=== PATIENT | female | born 1960 | race Caucasian/White ===

== ENCOUNTER 2020-03-27 17:37 | Emergency (ER) | payer OTHER, SELFPAY ==
[2020-03-27 17:44] VITALS: BP 145/64; PULSE 69; RESP 16; TEMP 36.8; O2SAT 98
--- NOTE | 2020-03-27 18:04 | ED.UPPEXIN ---
HPI - Extremity Injury (Upper) General Chief Complaint: Extremity Injury, Upper Stated Complaint: right arm injury Time Seen by Provider: 03/27/20 18:00 Source: patient and RN notes reviewed History of Present Illness HPI narrative: Patient is a 59-year-old female who presents the urgent care with complaints of a right shoulder injury. Patient states that she fell with her right arm outward approximately a week and a half ago. Patient states that she followed up at [facility] emergency room directly after the fall in which this shoulder x-ray was negative at that time. Patient denies of any dislocation or known fracture. States that she called her PCP this morning and told her she was still having a lot of discomfort to the right shoulder and was told to follow-up at the urgent care. Patient states that it is difficult to raise the arm however pain is reduced with ibuprofen. Patient also has prescription tramadol if necessary. No other acute complaints. No acute distress noted. Patient read the plan of care. Related Data Home Medications Medication Instructions Recorded Confirmed atorvastatin 20 mg PO DAILY 03/27/20 03/27/20 insulin glargine [Lantus U-100 30 unit SUBCUT BID 03/27/20 03/27/20 Insulin] insulin lispro [Humalog U-100 10 unit SUBCUT TID 03/27/20 03/27/20 Insulin] lisinopril 10 mg PO DAILY 03/27/20 03/27/20 phentermine 37.5 mg PO DAILY 03/27/20 03/27/20 Allergies Allergy/AdvReac Type Severity Reaction Status Date / Time acetaminophen [From Percocet] Allergy Hallucinati Verified 03/27/20 17:56 ng oxycodone [From Percocet] Allergy Hallucinati Verified 03/27/20 17:56 ng sertraline [From Zoloft] Allergy Itching Verified 03/27/20 17:56 Review of Systems Review of Systems: Narrative: CONSTITUTIONAL: Denies fever, chills, or sweats. EYES: Denies visual changes, redness, or discharge. ENT: Denies rhinorrhea, congestion, sore throat, or otalgia. CARDIOVASCULAR: Denies chest pain, palpitations, or edema. RESPIRATORY: Denies cough or dyspnea. GASTROINTESTINAL: Denies abdominal pain, nausea, vomiting, or diarrhea. GENITOURINARY: Denies dysuria or hematuria. SKIN: Denies rash or itching. MUSCULOSKELETAL: Reports of right anterior and posterior shoulder pain with range of motion NEUROLOGIC: Denies headache, numbness, or weakness. All other systems reviewed are negative, except as documented in HPI. PMFSH Comments At the time of my signature, I reviewed and agree with the nursing past medical, surgical, social, and family history. There is no relevant family history pertinent to the patient complaint. Exam Narrative: Exam Narrative: GENERAL: This is a well-nourished, well-developed patient, in no apparent distress. HEAD: normocephalic, atraumatic. EYES: PERRL. Sclera clear/white. Vision is grossly intact. EARS: External ears normal NOSE: External nose normal with no obvious nasal discharge, nares without redness, no rhinorrhea. THROAT: Mucous membranes moist NECK: Neck supple SKIN: warm, intact with no suspicious lesions or rash, good texture and turgor. NEURO: awake, alert, and oriented to person, place and time. There were no obvious focal neurologic abnormalities. EXTREMITIES: Mild to moderate posterior right shoulder joint tenderness, moderate tenderness to the anterior shoulder joint spaces with range of motion of the right shoulder limited due to pain. Positive strong right radial pulse with capillary refill less than 2 seconds. Course Vital Signs Vital signs: Vital Signs Temperature 98.2 F 03/27/20 17:44 Pulse Rate 69 03/27/20 17:44 Respiratory Rate 16 03/27/20 17:44 Blood Pressure 145/64 H 03/27/20 17:44 Pulse Oximetry 98 03/27/20 17:44 Temperature 98.2 F 03/27/20 17:44 Pulse Rate 69 03/27/20 17:44 Respiratory Rate 16 03/27/20 17:44 Blood Pressure 145/64 H 03/27/20 17:44 Pulse Oximetry 98 03/27/20 17:44 Reviewed?patient is informed that they may
== END 2020-03-27 18:13 | disposition home or self-care (01) ==
PROVIDERS: Emergency Provider Nurse Practitioner Family; PCP Internal Medicine
DX: S43.401A Unspecified sprain of right shoulder joint, initial encounter (principal); W19.XXXA Unspecified fall, initial encounter; E78.00 Pure hypercholesterolemia, unspecified; I10 Essential (primary) hypertension; E11.9 Type 2 diabetes mellitus without complications; Z79.4 Long term (current) use of insulin
CPT/HCPCS: 99212; G0463

== ENCOUNTER 2021-11-19 12:08 | Emergency (ER) | payer OTHER, SELFPAY ==
--- NOTE | 2021-11-19 12:10 | ED.FEMALEGU ---
HPI - Female Genitourinary General Chief complaint: Urogenital-Female Stated complaint: poss uti dizziness and lower back pain Time Seen by Provider: 11/19/21 12:10 Source: patient, family and RN notes reviewed History of Present Illness HPI Narrative: Patient is a 61-year-old female who presents the urgent care with complaints of possible UTI due to intermittent dizziness and lower back pain. Patient states lower back pain started last night. Denies of any recent changes in urination and states that she always has urinary Juan Alberto . Patient denies of any dysuria, hematuria, nausea, vomiting, abdominal pain or fevers. Patient has not taken anything [id number] for her low back pain and denies of any recent injury or heavy strenuous activity. Patient states that the dizziness has been ongoing for approximately 2 months and her doctor was unable to see her today and wanted her to be evaluated at the urgent care. No other acute complaints. No acute distress noted. Patient aware of the plan of care. Some parts of this dictation were generated by voice recognition software and may contain typographical and/or grammatical inaccuracies. Related Data Home Medications Medication Instructions Recorded Confirmed atorvastatin 40 mg PO DAILY 11/19/21 11/19/21 insulin detemir U-100 [Levemir 26 unit SUBCUT BID 11/19/21 11/19/21 U-100 Insulin] insulin lispro [Humalog Pen] 1 sliding scale dose SUBCUT 11/19/21 11/19/21 USEASDIRECTD lisinopril 10 mg PO DAILY 11/19/21 11/19/21 omeprazole 40 mg PO DAILY 11/19/21 11/19/21 Allergies Allergy/AdvReac Type Severity Reaction Status Date / Time acetaminophen [From Percocet] Allergy Hallucinati Verified 11/19/21 12:15 ng oxycodone [From Percocet] Allergy Hallucinati Verified 11/19/21 12:15 ng sertraline [From Zoloft] Allergy Itching Verified 11/19/21 12:15 antidepressants AdvReac Unknown Uncoded 11/19/21 12:29 Review of Systems Review of Systems: CONSTITUTIONAL: Denies fever, chills, or sweats. EYES: Denies visual changes, redness, or discharge. ENT: Denies rhinorrhea, congestion, sore throat, or otalgia. CARDIOVASCULAR: Denies chest pain, palpitations, or edema. RESPIRATORY: Denies cough or dyspnea. GASTROINTESTINAL: Denies abdominal pain, nausea, vomiting, or diarrhea. GENITOURINARY: Denies dysuria or hematuria. SKIN: Denies rash or itching. MUSCULOSKELETAL: Reports of low back pain NEUROLOGIC: Denies headache, numbness, or weakness. Reports of intermittent dizziness All other systems reviewed are negative, except as documented in HPI. PMFSH Comments At the time of my signature, I reviewed and agree with the nursing past medical, surgical, social, and family history. There is no relevant family history pertinent to the patient complaint. Exam Narrative: GENERAL: This is a well-nourished, well-developed patient, in no apparent distress. HEAD: normocephalic, atraumatic. EYES: PERRL. Sclera clear/white. Vision is grossly intact. EARS: External ears normal, auditory canals clear and without drainage, TMs normal without perforation. Hearing grossly intact. NOSE: External nose normal with no obvious nasal discharge, nares without redness, no rhinorrhea. THROAT: Mucous membranes moist, posterior pharynx clear. NECK: Neck supple CARDIOVASCULAR: Regular rate and rhythm without murmurs, gallops, or rubs. RESPIRATORY: Clear to auscultation. Breath sounds equal bilaterally. No wheezes, rales, or rhonchi. GASTROINTESTINAL: Abdomen soft, non-tender, nondistended. Bowel sounds are active. SKIN: warm, intact with no suspicious lesions or rash, good texture and turgor. NEURO: awake, alert, and oriented to person, place and time. There were no obvious focal neurologic abnormalities. EXTREMITIES: No clubbing, cyanosis, or edema. BACK: Negative bilateral CVA tenderness Course Course Level of Care: Express Care Visit Vital Signs Vital signs: Vital Signs Temperature 97.9 F 04
[2021-11-19 12:18] VITALS: BP 131/61; PULSE 63; RESP 16; TEMP 36.6; O2SAT 98
[2021-11-19 12:35] VITALS: BP 131/61; PULSE 63; RESP 16; TEMP 36.6; O2SAT 98
--- NOTE | 2021-11-19 12:38 | PC.NURSE ---
NO UC ORDERED PER PROVIDER
== END 2021-11-19 12:40 | disposition home or self-care (01) ==
PROVIDERS: Emergency Provider Nurse Practitioner Family; PCP Internal Medicine
DX: R42 Dizziness and giddiness (principal); E78.00 Pure hypercholesterolemia, unspecified; I10 Essential (primary) hypertension; E11.9 Type 2 diabetes mellitus without complications; Z79.4 Long term (current) use of insulin
CPT/HCPCS: 81003; 99212; G0463

== ENCOUNTER 2025-04-04 16:27 | Emergency (ER) | payer BC, SELFPAY ==
--- OUTSIDE RECORDS SUMMARY | 2025-04-04 16:29 | XMS_ITS | Encounter Summary ---
Author Organization [facility] Address [address] [place] [address] Phone Care Team Providers Care Cnc Applications Engineer Name Role Phone Robert Yepez Samantha WEISS Unavailable [phone] Shady Wang MD Primary Care Provider [phone] John Burns MD Unavailable [phone] Svetlana Roe MD Unavailable Reena Song APRN, CNP Unavailable [phone] Zan Wiley MD Primary Care Provider [phone] Jerrell Rosenthal MD Unavailable [phone] Reason for Visit * Reason Comments Medication Refill Encounter Details Date Type Department Care Team (Late st Contact Info) Description 12/10/2023 Refill [facility] - Endocrinology - [place] [address] [place] [address] Svetlana Roe MD #[address] [address] Medication Refill Social History Tobacco Use Types Packs/Day Years Used Date Smoking Tobacco: Never Smokeless Tobacco: Never Alcohol Use Standard Drinks/Week Comments Yes 0 (1 standard drink = 0.6 oz pure alcohol) Occasionally has a glas of wine, maybe one glass of wine/month PHQ-2 Answer Date Recorded Total Score - Questions 1-9 11 0 08/2020 Sexually Active Control Partners Comments Yes Female Comments No Sex and Gender Information Value Date Recorded Sex Assigned at Not on file Legal Sex Female 9:28 PM CDT Gender Identity Not on file Sexual Orientation Not on file documented as of this encounter Miscellaneous Notes * Telephone Encounter - Marietta Camacho RN - 12/11/2023 8:27 AM CDT Medication(s) refilled and signed per [facility] Chronic Medication Refill Standing Order for Pediatric and Adult Patients. documented in this encounter Plan of Treatment Upcoming Encounters Date Type Department Care Team (Latest Contact Info) Description 04/09/2025 8:45 AM CDT Outpatient Clinic [facility] [address] [place] [phone] Chetan Timmons, LICENSED MASSAGE PRACTITIONER [address] [place] [address] Discharge Disposition: Discharged to home or Selfcare 04/14/2025 9:45 AM CDT Office Visit [facility] - Endocr[facility]ology - [place] [address] [place] [phone] Svetlana Roe MD #[address] [address] 04/23/2025 5:30 PM CDT [facility] [address] [place] [phone] Zan Wiley MD [address] [place] [address] Discharge Disposition: Discharged to home or Selfcare 04/24/2025 10:00 AM CDT Outpatient Clinic Visit [facility] [address] [place] [address] Chetan Timmons, LICENSED MASSAGE PRACTITIONER [address] [place] [address] Discharge Disposition: Discharged to home or Selfcare 08/18/2025 9:00 AM SUTURE POLISHER Office Visit [facility] Pulmonology & Sleep Medicine [facility] [address] [place] [address] Reena Song APRN, LIVESTOCK DEALER #[address] [address] 09/08/2025 9:40 AM SUTURE POLISHER Office Visit [facility] - Primary Care - [place] [address] [place] [phone] Zan Wiley MD [address] [place] [address] documented as of this encounter Goals Goal Patient Goal Type Associated Problems Recent Progress Patient-Stated? Author Healing Behavioral Health On track(2024 10:13 AM CDT) Yes Millie Grace LCSW Note: I want to be able to heal from the feeling of being double crossed by family and others. Goal Reviewed with: patient today Readiness to change: Ready to change Department associated with goal: [facility] Steps to achieve goal: 1. will learn to identify unhealthy and healthy characteristics/patterns/behaviors of relationships. 2. will verbalize increased confidence in setting healthy boundaries with others. 3. will report increased engagement in self-care, both physical and emotional. 4. Will participate in individual sessions at least 2x/mo Boundaries Behavioral Health On track(2024 10:13 AM CDT) No Varble, Millie A, LICENSED MASSAGE PRACTITIONER Note: Desi will learn more effective ways to set boundaries Goal Reviewed with: patient today Readiness to change: Ready to change Department associated with goal: [facility] Steps to achieve goal: will identify at least two warning signs self care is being neglected. will identify at least two boundaries that may help to improve opportunities for self-care. will identify at least two ways/skills/habits of self-care believed to have a positive outcome on overall wellbeing. will implement at least two changes (boundaries and/or skills/habits of self- care). Behavioral Health Behavioral Health On track(2024 10:13 AM CDT) Yes Chetan Timmons, LICENSED MASSAGE PRACTITIONER Note: I need to be able to cope better with my spouse's decline from dementia, plus bipolar disorder, and advance planning for the future, including monetary. documented as of this encounter Visit Diagnoses Not on filedocumented in this encounter Additional Health Concerns Assessment Noted Time PHQ-9 Depression Total Score: 11 021 10:00 AM CDT documented as of this encounter Care Teams Cnc Applications Engineer Relationship Specialty Start Date End Date Shady Wang MD [address] [place] [address] PCP - General Internal Medicine 06/15/17 10/16/24 Zan Wiley MD #[address] [address] PCP - General Internal Medicine 10/17/24 Robert Yepez DPM Podiatry 11/23/15 John Burns MD [address] [place] [address] Consulting Physician Orthopaedic Sports Medicine 08/31/20 Svetlana Roe MD #2 [facility] [address] [place] [address] Consulting Physician Endocrinology 05/12/22 Reena Song APRN, SANDRA #2 [facility] [address] [place] [address] Nurse Practitioner Advanced Practice Nurse 05/09/23 Jerrell Rosenthal MD #2 [facility] [address] [place] [address] Consulting Physician General Surgery 11/13/24 documented as of this encounter
--- OUTSIDE RECORDS SUMMARY | 2025-04-04 16:29 | XMS_ITS | Encounter Summary ---
Author Organization [facility] Address [address] [place] [address] Phone Care Team Providers Care Food Technologist Name Role Phone Robert Yepez Samantha WEISS Unavailable [phone] Shady Wang MD Primary Care Provider John Burns MD Unavailable Svetlana Roe MD Unavailable Reena Song APRN, CNP Unavailable [phone] Zan Wiley MD Primary Care Provider [phone] Jerrell Rosenthal MD Unavailable [phone] Reason for Visit * Reason Comments Medication Refill Encounter Details Date Type Department Care Team (Late st Contact Info) Description 07/31/2023 Refill [facility] - [facility] - [place] [address] [place] [address] Svetlana Roe MD #[address] [address] Medication Refill Social History Tobacco [...] Miscellaneous Notes * Telephone Encounter - Marietta Camacho, RN - 08/01/2023 9:28 AM FLEET ASSISTANT Requested Prescriptions Pending Prescriptions Disp Refills ??? Continuous Blood Gluc Geophysical Laboratory Director (Dexcom G7 Geophysical Laboratory Director) Device [Pharmacy Med Name: DEXCOM G7 HOG COUNTER MIS] 1 Each 0 Sig: CHECK BLOOD GLUCOSE BEFORE EACH MEAL AND AT BEDTIME Next appt: 08/23/2023 T ASSISTANT documented in this encounter Plan of Treatment Upcoming Encounters Date Type Department Care Team (Latest Contact Info) Description 04/09/2025 8:45 AM CDT [facility] [address] [place] [phone] Chetan Timmons LCSW [address] [place] [address] Discharge Disposition: Discharged to home or Selfcare 04/14/2025 9:45 AM CDT Office Visit [facility] - Endocrinology [facility] #2 [place] [phone] Svetlana Roe MD #[address] [phone] 04/23/2025 5:30 PM CDT Appointment [facility] [address] [place] [phone] Zan Wiley MD [address] [place] [address] Discharge Disposition: Discharged to home or Selfcare 04/24/2025 10:00 AM CDT Outpatient Clinic Visit [facility] [address] [place] [address] Chetan Timmons, MANAGER WAREHOUSE [address] [place] [address] Discharge Disposition: Discharged to home or Selfcare 08/18/2025 9:00 AM FLEET ASSISTANT Office Visit [facility] Pulmonology & Sleep Medicine - [place] #[address] [place] [phone] Reena Song APRN, ENGINE DYNAMOMETER TESTER #[address] [address] 09/08/2025 9:40 AM FLEET ASSISTANT Office Visit [facility] - Primary Care - [place] [address] [place] [phone] Zan Wiley MD [address] [place] [address] documented as of this encounter Goals Goal Patient Goal Type Associated Problems Recent Progress Patient-Stated? Author Healing Behavioral Health On track(2024 10:13 AM CDT) Yes Millie Grace, MANAGER WAREHOUSE Note: I want to be able to heal from the feeling of being double crossed by family and others. Goal Reviewed with: patient today Readiness to change: Ready to change Department associated with goal: [facility] Steps to achieve goal: 1. will learn to identify unhealthy and healthy characteristics/patterns/behaviors of relationships. 2. will verbalize increased confidence in setting healthy boundaries with others. 3. will report increased engagement in self-care, both physical and emotional. 4. Will participate in individual sessions at least 2x/mo Boundaries Behavioral Health On track(2024 10:13 AM CDT) No Millie Grace LCSW Note: Desi will learn more effective ways to set boundaries Goal Reviewed with: patient today Readiness to change: Ready to change Department associated with goal: [facility] Steps to achieve goal: [...] On track(2024 10:13 AM CDT) Yes Chetan Timmons LCSW Note: I need to be able to cope better with my spouse's decline from dementia, plus bipolar disorder, and advance planning for the future, including monetary. documented as of this encounter Visit Diagnoses Not on filedocumented in this encounter Additional Health Concerns Assessment Noted Time PHQ-9 Depression Total Score: 11 021 10:00 AM CDT documented as of this encounter Care Teams Food Technologist Relationship Specialty Start Date End Date Shady Wang MD [address] [place] [address] PCP - General Internal Medicine 06/15/17 10/16/24 Zan Wiley MD #[address] [address] PCP - General Internal Medicine 10/17/24 Robert Yepez DPM Podiatry 11/23/15 John Burns MD [address] [place] [address] Consulting Physician Orthopaedic Sports Medicine 08/31/20 Svetlana Roe MD #[address] [address] Consulting Physician Endocrinology 05/12/22 Reena Song APRN, ENGINE DYNAMOMETER TESTER #[address] [address] Nurse Practitioner Advanced Practice Nurse 05/09/23 Jerrell Rosenthal MD #[address] [address] Consulting Physician General Surgery 11/13/24 documented as of this encounter
--- OUTSIDE RECORDS SUMMARY | 2025-04-04 16:29 | XMS_ITS | Clinical Summary ---
Author Organization [facility] Address [address] [place] [address] Phone Care Team Providers Care Drywaller Name Role Phone MarleniRobert DPM Unavailable [phone] John Burns MD Unavailable [phone] Svetlana Roe MD Unavailable Reena Song APRN, PARTS COUNTER SALESPERSON Unavailable Zan Wiley MD Primary Care Provider [phone] Jerrell Rosenthal MD Unavailable Allergies Active Allergy Reactions Criticality Noted Date Comments Charentais Melon (Macedonian Melon) Itching,Swelling Medium 11/04/2017 Tongue and lips itch with melon and tongue swells. Dulaglutide Itching 09/05/2019 Epinephrine Other (see Comments) 01/17/2025 Increased heart rate with difficulty breathing Meperidine Other (see Comments) 10/18/2021 Reaction: causes hallucinations, Metronidazole Itching 06/05/2023 Oxycodone-Acetaminophen Itching,Hallucin ati ons High 07/20/2015 Sertraline Hcl Itching Medium 07/20/2015 Medications Insulin Syringe-Needle U-100 (INSULIN SYRINGE .5CC/31GX5/16) 31G X 5/16 0.5 ML Misc Twice a day 200 Each 3 018 Active Lancets Misc Test four times daily. 400 Lancet 3 020 Active Glucose Blood Strip Test four times daily 400 Strip 3 020 Active aspirin 81 MG Chewable Tablet Take 1 Tablet by mouth daily. 100 Tablet 021 Active loratadine (CLARITIN) 10 MG Tablet daily Active albuterol 108 (90 Base) MCG/ACT Aerosol Solution take 1-2 Puffs by inhalation every 6 hours as needed for Wheezing. Active VITAMIN D PO Take by mouth. Ac tive Insulin Pen Needle (Pen [place]) 32G X 5 MM Misc Three times a day 300 Each 3 025 Active fluticasone-leslie meterol (Wixela Inhub) 250-50 MCG/ACT AEROSOL POWDER, BREATH ACTIVATEDIndica tions:Mild intermittent asthma without complication take 1 Puff by inhalation 2 times daily. 1 Each 5 025 Active Continuous Glucose Sensor (Dexcom G7 Sensor) Misc CHANGE SENSOR EVERY 10 DAYS 9 Each 025 Active Tresiba FlexTouch 100 UNIT/ML Solution Pen-injector 40 Units by Subcutaneous route 2 times daily. 75 mL 1 025 Active NovoLOG FlexPen 100 UNIT/ML Solution Pen-injector INJECT 44-60-60 UNITS SUBCUTANEOUSLY BEFORE MEAL(S) ISF OF 1:10 IF > 140MG/DL. MAX OF 180 UNITS PER DAY 180 mL 1 025 Active lisinopril (PRINIVIL, ZESTRIL) 5 MG Tablet Take 1 Tablet by mouth daily. 90 Tablet 025 Active atorvastatin (LIPITOR) 40 MG Tablet Take 1 Tablet by mouth daily. 90 Tablet 025 Active Continuous Glucose Script Coordinator (Dexcom G7 Script Coordinator) Device USE TO CHECK BLOOD GLUCOSE BEFORE EACH MEAL AND AT BEDTIME 1 Each 025 Active hydrOXYzine (ATARAX) 25 MG Tablet Take 1 Tablet by mouth every 8 hours as needed for Anxiety. 30 Tablet 025 Active zolpidem (AMBIEN) 5 MG TabletIndicatio ns:Psychophysio logical insomnia Take 1 Tablet by mouth nightly as needed for Sleep. 10 Tablet 025 Active Continuous Glucose Script Coordinator (Dexcom G7 Script Coordinator) Device Check blood glucose before each meal and at bedtime 1 Each 025 2024 Discontinued Active Problems Problem Noted Date Diagnosed Date Glaucoma of both eyes 10/17/2024 Mild intermittent asthma without complication Hyperparathyroidism 10/17/2024 Nonalcoholic fatty liver disease 10/17/2024 JOEY (obstructive sleep apnea) 08/10/2023 Overview (10/17/2024): On CPAP- FU by manager respiratory care. Anxiety with depression 01/29/2021 Chest pain, rule out acute myocardial infarction 09/28/2020 S/P right rotator cuff repair 09/28/2020 Class 2 severe obesity due t o excess calories with serious comorbidity and body mass index (BMI) of 37.0 to 37.9 in adult 12/17/2018 Type 2 diabetes mellitus wit hout complication, with long-term current use of insulin 10/23/2015 Essential hypertension 10/23/2015 Mixed hyperlipidemia 10/23/2015 Depression 07/20/2015 Anger 07/20/2015 Anxiety 07/20/2015 Resolved Problems Problem Noted Date Diagnosed Date Resolved Date Snoring 05/09/2023 08/10/2023 Excessive daytime sleepiness 05/09/2023 08/13/2024 Traumatic complete tear of right rotator cuff 09/29/1909/28/2020 Arthritis of right acromioclavicular joint 09/28/2020 09/28/2020 Biceps tendinitis on right 09/28/2020 0 09/28/2020 Hypoglycemia 12/17/2018 10/17/2024 Asthma 06/15/2017 10/17/2024 Numbness of face 02/11/2016 10/17/2024 Encounters Date Type Department Care Team Description 04/04/2025 Nurse Triage [facility] [address] [place] [address] Zan Wiley MD Advice Only; Medication Management 03/20/2025 Refill [facility] - [place] [address] [place] [address] Svetlana Roe MD Medication Refill 03/07/2025 8:40 AM CDT Office Visit [facility] Primary Care - [place] [address] [place] [address] Zan Wiley MD Chronic allergic rhinitis (Primary Dx); Barnes of foot; Right lower lobe pulmonary nodule; Morbid obesity (HCC); Essential hypertension; Mixed hyperlipidemia Discharge Disposition: Discharged to home or Selfcare 03/07/2025 Travel 03/03/2025 10:00 AM CDT Outpatient Clinic Visit [facility] [address] [place] [phone] Chetan Timmons, [facility] Anxiety with depression (Primary Dx) Discharge Disposition: Discharged to home or Selfcare 03/03/2025 Travel 02/24/2025 Refill [facility] Internal Medicine - [place] [address] [place] [address] Zan Wiley MD Medication Refill 02/22/2025 MyChart RX Renewal [facility] Endocrinology [facility] [address] [place] [phone] Svetlana Roe MD Medication Renewal Reviewed 02/22/2025 MyChart RX Renewal [facility] Endocrinology [facility] [address] [place] [phone] Svetlana Roe MD Medication Renewal Reviewed 02/22/2025 MyChart RX Renewal [facility] Endocrinology - [place] [address] [place] [phone] Svetlana Roe MD Medication Renewal Reviewed 02/22/2025 MyChart RX Renewal [facility] Endocrinology [facility] [address] [place] [phone] Svetlana Roe MD Medication Renewal Reviewed 02/10/2025 9:30 AM CDT Office Visit [facility] Pulmonology & Sleep Medicine [facility] [address] [place] [phone] Reena Song APRN, CNP JOEY (obstructive sleep apnea) (Primary Dx); Mild intermittent asthma without complication; Class 2 severe obesity due to excess calories with serious comorbidity and body mass index (BMI) of 37.0 to 37.9 in adult (HCC) Discharge Disposition: Discharged to home or Selfcare 02/10/2025 Travel 02/08/2025 MyChart RX Renewal [facility] Endocrinology - [place] [address] [place] [address] Svetlana Roe MD Medication Renewal Reviewed 02/08/2025 MyChart RX Renewal [facility] Pulmonology & Sleep Medicine [facility] [address] [place] [address] Reena Song APRN, CNP Medication Renewal Reviewed 01/28/2025 11:15 AM CDT Outpatient Clinic Visit [facility] [address] [place] [address] Chetan Timmons, FRAME NAILER Anxiety with depression (Primary Dx) Discharge Disposition: Discharged to home or Selfcare 01/28/2025 Travel 01/21/2025 Results Follow-Up [facility] [address] [place] [address] Svetlana Roe MD Pathology Cytology Non-VERIFIER OPERATOR 01/17/2025 10:00 AM CDT - 01/17/2025 10:30 AM CDT Surgery [facility] Periop [address] [place] [address] Provider, Not On File PRE / POST CARE FOR PROCEDURAL AREA-THYROID BIOPSY RIGHT AND ISTHMUS 01/17/2025 9:04 AM CDT - 01/17/2025 11:59 PM CDT Hospital Encounter [facility] Ultrasound [address] [place] [address] Svetlana Roe MD Provider, Anesthesiologist Discharge Disposition: Discharged to home or Selfcare 01/17/2025 8:48 AM CDT - 01/17/2025 11:05 AM CDT Hospital [facility] Preop/Pacu II [address] [place] [phone] Provider, Not On File Svetlana Roe MD Discharge Disposition: Discharged to home or Selfcare 01/17/2025 Travel 01/07/2025 10:00 AM CDT [facility] [address] [place] [address] Svetlana Roe MD Type 2 diabetes mellitus without complication, with long-term current use of insulin (Primary Dx); Nodular goiter; Class 2 severe obesity due to excess calories with serious comorbidity and body mass index (BMI) of 38.0 to 38.9 in adult (HCC); Insulin dose changed (HCC); Hyperparathyroidism (HCC) Discharge Disposition: Discharged to home or Selfcare 01/07/2025 Travel from Last 3 Months Immunizations Immunization Administration Dates Next Due Influenza Vaccine greater than 3 yrs 03/31/2016 Influenza Vaccine, MDCK,quad rivalent, pres free 04/22/2022 Influenza Vaccine, Quadrivalent, PF 04/10/2017,0 04/10/2015 Influenza Vaccine,unspecifie d Formulation 05/04/2023 Influenza, Injectable, Quadrivalent 05/01,04/24/2020,05/22/2019,05/15 Influenza, Seasonal, Injecta ble, Undefined 03/31/2016 Influenza, high-dose, trivalent, PF 06/03/2014 Influenza,Split Virus,Trivalent,Injectable,PF 03/31/2011 Pneumococcal Vaccine - 13 Valent 04/10/2017 Pneumococcal Vaccine Adult - 23 Valent 0,10/22/2009 Pneumococcal conjugate PCV20 , polysaccharide [id number] conjugate, adjuvant, PF 10/17/2024 RSV, Bivalent, Protein Subun it Rsvpref, Diluent Reconstit (Abrysvo) 06/14/2023 TDAP Vaccine 03/22/2022,12/31/2017,10/22/2009 Family History Medical History Relation Name Comments Diabetes Brother Asthma Father Cancer Father Melanoma, lung, and bone Alcohol Abuse Maternal Grandfather Schizophrenia Maternal Grandmother Alcohol Abuse Maternal Uncle Bipolar Disorder Mother Cancer Mother Stomach Relation Name Status Comments Brother Alive Father (Age 79) Maternal Grandfather Maternal Grandmother Maternal Uncle Mother (Age 62) Social History Tobacco Use Types Packs/Day Years Used Date Smoking Tobacco: Never Passive Smoke Exposure: Never Smokeless Tobacco: Never Tobacco Cessation:Counseling Given: No Alcohol Use Standard Drinks/Week Comments Yes 0 (1 standard drink = 0.6 oz pure alcohol) Occasionally has a glas of wine, maybe one glass of wine/month [employer] Answer Date Recorded In the past 12 months has [employer], oil, or water [employer] threatened to shut off services in your home? Patient declined 10/17/2024 Social Connection and Isolation Panel Answer Date Recorded In a typical week, how many times do you talk on the phone with family, friends, or neighbors? More than three times a week 10/17/2024 How often do you get togethe r with friends or relatives? Twice a week 10/17/2024 How often do you attend [facility] ch or baptism services? More than 4 times per year 10/17/2024 Do you belong to any clubs o r organizations such as taoism groups, unions, fraternal or athletic groups, or school groups? Yes 10/17/2024 How often do you attend meet ings of the clubs or organizations you belong to? More than 4 times per year 10/17/2024 Are you , , di vorced, , never , or living with a partner? 10/17/2024 AUDIT-C Answer Date Recorded Q1: How often do you have a drink containing alc ohol? Monthly or less 10/17/2024 Average Number of Drinks Not on file 025 Frequency of Binge Drinking Not on file 09/29 Overall Financial Resource Strain (CARDIA) Answe r Date Recorded How hard is it for you to pa y for the very basics like food, housing, medical care, and heating? Patient declined 10/17/2024 PHQ-2 Answer Date Recorded Total Score - Questions 1-9 0 09/29 [employer] - Occupational Stress Questionnaire Answer Date Recorded Do you feel stress - tense, restless, nervous, or anxious, or unable to sleep at night because your mind is troubled all the time - these days? Very much 10/17/2024 Exercise Vital Sign Answer Date Recorde d On average, how many days pe r week do you engage in moderate to strenuous exercise (like a brisk walk)? 1 day 10/17/2024 On average, how many minutes do you engage in exercise at this level? 10 min 10/17/2024 Hunger Vital Sign Answer Date Recorded Within the past 12 months, y ou worried that your food would run out before you got the money to buy more. Patient declined Ran Out of Food in the Last Year Not on file 10/17/2024 PRAPARE - Transportation Answer Date Re corded In the past 12 months, has l ack of transportation kept you from medical appointments or from getting medications? Patient declined 10/17/2024 Lack of Transportation (Non-Medical) Not on file 10/17/2024 Housing Stability Vital Sign Answer Cricket e Recorded In the last 12 months, was t here a time when you were not able to pay the mortgage or rent on time? Patient declined 10/18/19 Number of Times Moved in the Last Year Not on fi le 10/17/2024 Homeless in the Last Year Not on file 2024 Sexually Active Control Partners Comments Yes Female Comments No Sex and Gender Information Value Date Recorded Sex Assigned at Not on file Legal Sex Female 9:28 PM CDT Gender Identity Not on file Sexual Orientation Not on file Last Filed Vital Signs Vital Sign Reading Time Taken Comments Blood Pressure 112/70 03/07/2025 8:07 AM CDT Pulse 64 03/07/2025 8:07 AM CDT Temperature 36.3 C (97.4 F) 03/07/2025 8:07 AM CDT Respiratory Rate 12 03/07/2025 8:07 AM CDT Oxygen Saturation 97% 03/07/2025 8:07 AM CDT Inhaled Oxygen Concentration - - Weight 96.2 kg (212 lb) 03/07/2025 8:07 AM CDT Height 157.5 cm (5' 2) 02/10/2025 9:30 AM CDT Body Mass Index 38.78 02/10/2025 9:30 AM CDT Plan of Treatment Upcoming Encounters Date Type Department Care Team (Latest Contact Info) Description 04/09/2025 8:45 AM CDT Outpatient Clinic Visit [facility] [address] [place] [phone] Chetan Timmons, FRAME NAILER [address] [place] [address] Discharge Disposition: Discharged to home or Selfcare 04/14/2025 9:45 AM CDT Office Visit [facility] - Endocrinology [facility] [address] [place] [phone] Svetlana Roe MD [address] [address] 04/23/2025 5:30 PM CDT Appointment [facility] [address] [place] [phone] Zan Wiley MD [address] [place] [address] Discharge Disposition: Discharged to home or Selfcare 04/24/2025 10:00 AM CDT Outpatient Clinic Visit [facility] [address] [place] [address] Chetan Timmons, FR[employer] NAIL[employer] [address] [place] [address] Discharge Disposition: Discharged to home or Selfcare 08/18/2025 9:00 AM FOUNDER CEO & PRESIDENT Office Visit [facility] - Pulmonology & Sleep Medicine [facility] [address] [place] [phone] Reena Song APRN, [place] [address] [facility] [address] [place] [address] 09/08/2025 9:40 AM FOUNDER CEO & PRESIDENT Office Visit [facility] Group - Primary Care - [place] [address] [place] [phone] Zan Wiley MD [address] [place] [address] Health Maintenance Due Date Last Done Comments Hepatitis C Virus (HCV) Screening 1961 Cologuard 2006 Immunochemical Fecal Occult Blood 2006 Zoster Immunization (1 of 2) 2011 Influenza Immunization (#1) 03/31/202503/01, 05/04/2023, 04/22/2022, Additional history exists Diabetes: Hemoglobin A1c 07/09/2025 025, 09/30/2024, 07/01/2024, Additional history exists Diabetes: Nephropathy Screening 09/24/2025 09/24/2024, 06/10/2024, 09/11/2023, Additional history exists Mammogram 10/03/2025 10/03/2024, 03/0 12/2024, 06/19/2023, Additional history exists Diabetes: Eye Exam 10/17/2025 10/17/2024, 0 09/05/2023, 08/03/2022, Additional history exists Diabetes: Foot Exam 10/17/2025 10/17/2024, 3 Colonoscopy 08/19/2031 08/19/2021 Colorectal Cancer Screening 08/19/2031 Td Immunization Every 10 Years (Adults With 1 Tdap) 03/22/2032 03/22/2022, 12/31/2017, 10/22/2009 DTaP/Tdap/Td Immunization Discontinued 2021, 12/31/2017, 10/22/2009 Respiratory Syncytial Virus (RSV) Immunization (Adult) Completed 06/14/2023 SARS-COV-2 Immunization Completed 03/28/20 24, 06/14/2023, 04/22/2022, Additional history exists Pneumococcal Immunization (50+ years) Completed 10/17/2024, 04/10/2017, 04/30/2010, Additional history exists Pneumococcal Immunization Combined Discontinued 10/17/2024, 04/10/2017, 04/30/2010, Additional history exists Hepatitis B Immunization Aged Out No longer eligible based on patient's age to complete this topic Human Papillomavirus (HPV) Immunization Aged Out No longer eligible based on patient's age to complete this topic Meningococcal Immunization (ACWY) Aged Out No longer eligible based on patient's age to complete this topic Rotavirus Immunization Aged Out No lo nger eligible based on patient's age to complete this topic Goals Goal Patient Goal Type Associated Problems Recent Progress Patient-Stated? Author [facility] On track(2024 10:13 AM CDT) Yes Millie Grace LCSW Note: I want to be able to heal from the feeling of being double crossed by family and others. Goal Reviewed with: patient today Readiness to change: Ready to change Department associated with goal: [facility] Steps to achieve goal: 1. will learn to identify unhealthy and healthy characteristics/patterns/behaviors of relationships. 2. will verbalize increased confidence in setting healthy boundaries with others. 3. will report increased engagement in self-care, both physical and emotional. 4. Will participate in individual sessions at least 2x/mo [facility] On track(2024 10:13 AM CDT) No Millie Grace LCSW Note: Bacilio will learn more effective ways to set boundaries Goal Reviewed with: patient today Readiness to change: Ready to change Department associated with goal: [facility] Steps to achieve goal: [...] advance planning for the future, including monetary. Medical Devices Implanted Type Area Sewer Digger Device Identifier Shelf Expiration Date Model / Serial / Lot [place] Sut 5.5mm Swivelock C Closed Eyelet Vent Biocomposite Peek 19.1mm Strl - [id number] Implanted:Qty: 1 on 09/28/[facility] IMPL[facility] Right: Shoulder [employer] 07/30/2024 AR-2323BC C / AR-2323BC C / [id number] [place] Sut Swivelk 4.12z14vl Absb Sft Tis Biocmps - [id number] Implanted:Qty: 1 on 09/28/2020 by [facility] IMPLANT Right: Shoulder [employer] 04/29/2024 AR-2324BC C-2 / AR-2324BC C-2 / [id number] [place] Sut Swivelk 4.33m02rg Absb Sft Tis Biocmps - [id number] Implanted:Qty: 1 on 09/28/2020 by John Burns MD at [facility] IMPLANT Right: Shoulder [employer] 04/29/2024 AR-2324BC C-2 / AR-2324BC C-2 / [id number] Explanted Type Area Sewer Digger Device Identifier Shelf Expiration Date Model / Serial / Lot 2.6 Fiber Siddharth Suture [place], Triple Loaded With 1.3mm Suture Tape Explanted:Qty: 1 on 09/28/[facility] at [facility] Right: Shoulder [employer] 03/30/2025 AR-3633 / AR-3633 / [id number] Procedures Procedure Name Priority Date/Time Associated Diagnosis Comments US GUIDANCE AND THYROID FINE NEEDLE ASPIRATION Routine 01/17/2025 11:01 AM CDT Nodular goiter US GUIDANCE AND THYROID FINE NEEDLE ASPIRATION Routine 01/17/2025 11:00 AM CDT Nodular goiter PATHOLOGY CYTOLOGY NON-VERIFIER OPERATOR Routine 01/17/2025 10:40 AM CDT Nodular goiter PRE / POST CARE FOR PROCEDURAL AREA 01/17/2025 10:00 AM CDT THYROID NODULE POCT GLYCOSYLATED HEMOGLOBIN Routine 01/07/2025 9:50 AM CDT Type 2 diabetes mellitus without complication, with long-term current use of insulin MAMMOGRAM BILATERAL GENERIC 10/03/2024 12:00 AM FOUNDER CEO & PRESIDENT CMP (COMPREHENSIVE METABOLIC PANEL) 09/24/2024 12:00 AM FOUNDER CEO & PRESIDENT HM DILATED EYE EXAM 08/03/2022 1 2:00 AM FOUNDER CEO & PRESIDENT from Last 3 Months or Most Recently Relevant to Health Maintenance Results * US GUIDANCE AND THYROID FINE NEEDLE ASPIRATION (01/17/2025 11:01 AM CDT) Only the most recent of2 resultswithin the time period is included. Anatomical Region Laterality Modality BODY N/A Ultrasound 01/17/2025 12:1 5 PM CDT Impressions 01/17/2025 12:18 PM CDT IMPRESSION: Unsuccessful attempts at ultrasound-guided fine-needle aspiration of the isthmus nodule due to extensive peripheral calcification. Narrative 01/17/2025 12:18 PM CDT EXAM DESCRIPTION: US GUIDANCE AND THYROID FINE NEEDLE ASPIRATION HISTORY: nodular goiter ultrasound guided fine-needle aspiration of this nodule was requested. COMPARISON: Thyroid ultrasound 11/19/2024 TECHNIQUE/FINDINGS: Comparison was made to thyroid ultrasound dated 11/19/2024. Immediately prior to the procedure, the healthcare team performed the safety pause and verbally confirmed that the patient, the planned procedure, the site and side were accurate. Preprocedure images redemonstrate the 2.5 x 2.1 x 1.7 cm peripherally calcified nodule in the isthmus. The skin was prepped using standard aseptic technique. Local anesthesia was achieved with injection of 2 mL of 1% lidocaine in the skin and superficial tissues. Attempts at fine needle aspiration were made of the thyroid nodule under sonographic guidance. Due to extensive calcification, the needle was not able to penetrate the nodule. Needle placement was documented with sonographic images. No complications were noted. Hemostasis was achieved. A sterile bandage was applied to the site. The patient tolerated the procedure well without complication. Post procedure pain control was adequate. Post procedure education was completed including pain management instructions. Estimated blood loss: <5 mL THIS IS AN ELECTRONICALLY VERIFIED FINAL REPORT 01/17/2025 12:15 PM - Electronically signed by Rafat Salinas M.D. AM: AM Report ID: [id number] Reading Location: [id number] Procedure Note Rafat Salinas MD - 01/17/2025 EXAM DESCRIPTION: US GUIDANCE AND THYROID FINE NEEDLE ASPIRATION HISTORY: nodular goiter ultrasound guided fine-needle aspiration of this nodule was requested. COMPARISON: Thyroid ultrasound 11/19/2024 TECHNIQUE/FINDINGS: Comparison was made to thyroid ultrasound dated 11/19/2024. Immediately prior to the procedure, the healthcare team performed the safety pause and verbally confirmed that the patient, the planned procedure, the site and side were accurate. Preprocedure images redemonstrate the 2.5 x 2.1 x 1.7 cm peripherally calcified nodule in the isthmus. The skin was prepped using standard aseptic technique. Local anesthesia was achieved with injection of 2 mL of 1% lidocaine in the skin and superficial tissues. Attempts at fine needle aspiration were made of the thyroid nodule under sonographic guidance. Due to extensive calcification, the needle was not able to penetrate the nodule. Needle placement was documented with sonographic images. No complications were noted. Hemostasis was achieved. A sterile bandage was applied to the site. The patient tolerated the procedure well without complication. Post procedure pain control was adequate. Post procedure education was completed including pain management instructions. Estimated blood loss: <5 mL THIS IS AN ELECTRONICALLY VERIFIED FINAL REPORT 01/17/2025 12:15 PM - Electronically signed by Rafat Salinas M.D. AM: AM Report ID: [id number] Reading Location: [id number] IMPRESSION: Unsuccessful attempts at ultrasound-guided fine-needle aspiration of the isthmus nodule due to extensive peripheral calcification. us Svetlana Roe MD IMG US ORDERABLES Final Result * Pathology Cytology Non-VERIFIER OPERATOR (01/17/2025 10:40 AM CDT) Case Report Medical Cytology Report Case: [id number] Authorizing Provider: Svetlana Roe MD Collected: 01/17/2025 10:40 AM Ordering Location: [facility] Received: 01/17/2025 11:47 AM [facility] Ultrasound Pathologist: Pratima Joseph MD PhD Specimen: Thyroid, Right Thyroid FNA, 2 passes, 1040, SB/Brad, 01/17/25 01/20/2025 1:39 PM CDT [facility] FINAL DIAGNOSIS Thyroid, right mid, nodule 1.9 x 1.4 x 1.3 cm, ultrasound guided fine needle aspiration: - Adequate for evaluation - Benign - Benign follicular nodule 01/20/2025 1:39 PM CDT [facility] at 1339 CDT Intraoperative Consultation A. Right Thyroid FNA, 2 passes, 1040, SB/Brad, 01/17/25 IMMEDIATE INTERPRETATION PATHOLOGY: Thyroid, right mid, nodule 1.9 x 1.4 x 1.3 cm, ultrasound guided fine needle aspiration: - Adequate for evaluation. - Shared with Dr. Salinas by Dr. Joseph in the procedure on January 17, 2025. - Total of two passes taken. 01/20/2025 1:39 PM CDT [facility] Comment Abundant colloid and some bland follicular cells forming macrofollicles. 01/20/2025 1:39 PM CDT [facility] Gross Description A. Right Thyroid FNA, 2 passes, 1040, SB/Brad, 01/17/25 Specimen is an ultrasound guided fine needle aspiration of right mid thyroid nodule 1.9 x 1.4 x 1.3 cm, performed by Dr. Salinas and assisted for adequacy by Dr. Joseph. Two passes were deemed adequate by Dr. Joseph and shared with Dr. Salinas in the procedure. Two slides were stained with Diff-Quik and two slides were stained with Pap stain (fixed in 95% alcohol) for cytologic examination. AM/sb 01/20/2025 1:39 PM CDT [facility] Microscopic Description Microscopic examination was performed which supports the final diagnosis. All control tissues stained appropriately. 01/20/2025 1:39 PM CDT [facility] Tissue THYROID STRUCTURE / Unknown 01/17/2025 10:40 AM CDT 01/17/2025 11:47 AM CDT us Svetlana Roe MD PATHOLOGY/CYTOLOGY ORDERABLES Fi nal Result Performing Organization Address City/[facility]/ZIP Co de Phone Number [facility] [address] [place] [address] * (ABNORMAL) POCT GLYCOSYLATED HEMOGLOBIN (01/07/2025 9:50 AM CDT) HGB-A1C 7.4(A) 4 - 6 % Blood 01/07/2025 9:50 AM CDT us Svetlana Roe MD POINT OF CARE TESTING (MANUAL) F inal Result * MAMMOGRAM BILATERAL GENERIC (10/03/2024 12:00 AM FOUNDER CEO & PRESIDENT) 10/03/2024 us Provider Scan IMG MAMMO ORDERABLES Final Resul t Performing Organization Address City/[facility] Co de Phone Number SCAN * CMP (COMPREHENSIVE METABOLIC PANEL) (09/24/2024 12:00 AM FOUNDER CEO & PRESIDENT) 09/24/2024 us Provider Scan CHEMISTRY ORDERABLES Final Resul t SCAN * HM DILATED EYE EXAM (08/03/2022 12:00 AM FOUNDER CEO & PRESIDENT) 08/03/2022 us Provider Scan PROCEDURE/MINOR SURGICAL ORDERAB LES Final Result Performing Organization Address City/[facility]/ZIP Co de Phone Number SCAN from Last 3 Months or Most Recently Relevant to Health Maintenance Insurance [facility] Advance Directives * Full Code (Latest Code Status on File) Date Activated Date Inactivated Comments 06/15/2017 10:55 AM 06/15/2017 8:13 PM CPR-Full Treatment: FULL ARREST: Attempt Resuscitation/CPR wit intubation and mechanical ventilation. PRE-ARREST: Use entire range of life support measures to stabilize the patient. * Full Code Date Activated Date Inactivated Comments 02/11/2016 4:16 PM 02/12/2016 3:33 PM CPR-Full Joel atment: FULL ARREST: Attempt Resuscitation/CPR wit intubation and mechanical ventilation. PRE-ARREST: Use entire range of life support measures to stabilize the patient. Care Teams Drywaller Relationship Specialty Start Date End Date Zan Wiley MD #[address] [address] PCP - General Internal Medicine 10/17/24 Robert Yepez DPM Podiatry 11/23/15 John Burns MD Consulting Physician Orthopaedic Sports Medicine 08/31/20 Svetlana Roe MD #2 [facility] [address] [place] [address] Consulting Physician Endocrinology 05/12/22 Reena Song APRN, PARTS COUNTER SALESPERSON #2 [facility] [address] [place] [address] Nurse Practitioner Advanced Practice Nurse 05/09/23 Jerrell Rosenthal MD #2 [facility] [address] [place] [id number] Consulting Physician General Surgery 11/13/24
--- OUTSIDE RECORDS SUMMARY | 2025-04-04 16:29 | XMS_ITS | Clinical Summary ---
Author Organization [facility] Medical Office Building [address] Address [address] [place] [address] Care Team Providers Care Veneer Splicer Name Role Phone Shady Wang MD Primary Care Provider [phone] Allergies Active Allergy Reactions Criticality Noted Date Comments Dulaglutide Itching Low 09/05/2019 Melon Itching,Swelling Medium 11/04/2017 Tongue and lips itch with melon and tongue swells. Meperidine Other (See comments) Reaction: causes hallucinations, Oxycodone Other (See comments) Reaction: causes hallucinations, Oxycodone-Acetaminophen Hallucinations,I tchi ng High 07/20/2015 Sertraline Sertraline Hcl Itching Medium 07/20/2015 Medications lisinopril (PRINIVIL,ZESTR IL) 10 mg tabletIndicatio ns:hypertension Take 10 mg by mouth daily. Active atorvastatin (LIPITOR) 10 mg tabletIndicatio ns:hyperlipidem ia Take 10 mg by mouth daily. Active aspirin 81 mg chewable tablet Take 81 mg by mouth daily. Active insulin lispro (HumaLOG) 100 unit/mL injectionIndica tions:type 2 diabetes mellitus,per carb intake Inject under the skin 3 (three) times a day before meals. Active insulin detemir (LEVEMIR) 100 unit/mL injectionIndica tions:type 2 diabetes mellitus Inject 25 Units under the skin 2 (two) times a day. Active albuterol HFA (Ventolin HFA) 90 mcg/actuation inhaler Ventolin HFA 90 mcg/actuation aerosol inhaler INHALE 2 PUFFS BY MOUTH THREE TIMES DAILY NEEDED Active Lantus Solostar U-100 Insulin 100 unit/mL (3 mL) insulin pen 10/08/19 Active loratadine (Claritin) 10 mg tablet daily Active senna-docusate (PERICOLACE) 8.6-50 mg Take 1 tablet by mouth 2 (two) times a day as needed 09/29/19 Active Imvexxy Maintenance Pack 10 mcg insert vaginal insert INSERT 1 SUPPOSITORY INTO VAGINA TWO TIMES A WEEK 01/21/20 21 Active Victoza 2-Cem 0.6 mg/0.1 mL (18 mg/3 mL) injection INJECT 0.6 MG SUBCUTANEOUSLY ONCE DAILY FOR 1 WEEK THEN 1.2 MG DAILY FOR 1 WEEK THEN INCREASE IT TO 1.8 MG DAILY 01/30/20 21 Active Nuvessa 1.3 % gel INSERT 1 APPLICATORFUL VAGINALLY ONCE DIRECTED BY 01/21/20 Active omeprazole (PriLOSEC) 40 mg capsule Take 40 mg by mouth daily 07/29/20 Active Active Problems Problem Noted Date Diagnosed Date Gastroesophageal reflux disease 08/17/2021 Assessment & Plan (08/17/2021 11:24 AM DERRICK WORKER): egd Personal history of colonic polyps 08/17/2021 Overview (08/17/2021): Added automatically from request for surgery [id number] Encounter for screening colonoscopy 08/17/2021 Overview (08/17/2021): Added automatically from request for surgery [id number] Esophageal pain 08/17/2021 Overview (08/17/2021): Added automatically from request for surgery [id number] 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 She has not trialed any compression therapy on a consistent basis. She also has associated edema for lower extremity. Plan: Recommend medical treatment over surgical intervention. Daily compression regimen consisting of medical grade knee-high compression stockings 20 30 mm mercury in strength with leg elevation p.r.n.. Patient follow-up on as-needed basis. Chest pain, rule out acute myocardial infarction 09/28/2020 S/P right rotator cuff repair 09/28/2020 Hypoglycemia 12/17/2018 Rectovaginal fistula 02/01/2018 Assessment & Plan (08/17/2021 11:27 AM DERRICK WORKER): Still some leakage Examine with colonoscopy BMI 35.0-35.9,adult 11/22/2017 Ventral hernia without obstruction or gangrene 0 10/24/2017 Assessment & Plan (10/24/2017 5:34 PM CDT): Will obtain a ct of the abdomen for evaluation of bulge and for surgical planning. Would like to schedule simultaneously with her hysterectomy with Dr. Valdez on 10/31/17. Will plan accordingly. Asthma 06/15/2017 Numbness of face 02/11/2016 Essential hypertension 10/23/2015 Assessment & Plan (10/20/2020 7:24 PM CDT): Impression: Stable chronic hypertension. Plan: Medications reviewed and recommend continuing daily antihypertensive regimen as directed by patient's primary care physician. Hyperlipidemia 10/23/2015 Assessment & Plan (10/20/2020 7:24 PM CDT): Impression: Stable chronic hyperlipidemia. Plan: Medications reviewed I recommend continuing daily statin regimen as directed by patient's primary care physician. Anger 07/20/2015 Anxiety 07/20/2015 Depression 07/20/2015 Type 2 diabetes mellitus 12/11/2013 Overview (11/03/2016): DMII WO CMP UNCNTRLD Immunizations Immunization Administration Dates Next Due Influenza, Quadrivalent, Split, Intramuscular ,05/15/2018 Influenza, Quadrivalent, Spl it, Preservative Free, Intramuscular 04/10/2017,04/10/2015 Influenza, Trivalent, High D ose, Split, Preservative Free, Intramuscular 06/03/2014 Influenza, Trivalent, IM (MDV) 03/31/2016 Influenza, Trivalent, Preservative Free, Intramu scular 03/31/2011 Pneumococcal Conjugate PCV 13 04/10/2017 Pneumococcal Polysaccharide PPV23 04/30/2010, Tdap 12/31/2017,10/22/2009 Surgical History Surgery Date Site/Laterality Comments TONSILLECTOMY 07/31/1964 - 07/30/1965 tonsillectomy BUNIONECTOMY 07/31/1986 - 07/30/1987 bunionectomy BUNIONECTOMY Bilateral TONSILLECTOMY 07/31/1968 - 07/30/1969 Bilateral DILATION AND CURETTAGE OF UTERUS N/A HYSTERECTOMY COLONOSCOPY 07/31/2014 - 07/30/2015 Medical History Medical History Date Comments Hx Other Medical thyroid nodule Type 2 diabetes mellitus Hypertension Thyroid disease Asthma Migraines Depression GERD (gastroesophageal reflux disease) Colon polyp Family History Medical History Relation Name Comments Cancer Father Cancer -; /Fami ly history of malignant neoplasm - (Added by TW Conv) Cancer Mother Family history of malignant neoplasm - (Added by TW Conv) Stomach cancer Mother Cancer -stoma ch; Diabetes Mother's Sister Heart disease Mother's Sister Alcohol abuse Other Arthritis Other Mental illness Other Diabetes Sister Relation Name Status Comments Brother Alive Father Mother Mother's Sister Other Sister Social History Tobacco Use Types Packs/Day Years Used Date Smoking Tobacco: Never Smokeless Tobacco: Never Alcohol Use Standard Drinks/Week Comments Yes 0 (1 standard drink = 0.6 oz pur e alcohol) Comments Unknown Sex and Gender Information Value Date Recorded Sex Assigned at Not on file Legal Sex Female 7:13 PM DERRICK WORKER Gender Identity Not on file Sexual Orientation Not on file Obstetrics History Last Filed Vital Signs Vital Sign Reading Time Taken Comments Blood Pressure 124/58 08/19/2021 10:55 AM DERRICK WORKER Pulse 62 08/19/2021 10:55 AM DERRICK WORKER Temperature 36.7 C (98.1 F) 08/19/2021 10:55 AM DERRICK WORKER Respiratory Rate 18 08/19/2021 10:55 AM DERRICK WORKER Oxygen Saturation 96% 08/19/2021 10:55 AM DERRICK WORKER Inhaled Oxygen Concentration - - Weight 82.6 kg (182 lb) 08/19/2021 9:17 AM DERRICK WORKER Height 157.5 cm (5' 2) 08/19/2021 9:17 AM DERRICK WORKER Body Mass Index 33.29 08/19/2021 9:17 AM DERRICK WORKER Plan of Treatment Health Maintenance Due Date Last Done Comments Albumin Creatinine Ratio, Urine 1960 Breast Cancer Screening-Mammogram 1960 Depression Screening 1960 Hepatitis C Screening 1960 Dilated Eye Exam 1961 Foot Exam 1961 Hepatitis B Screening 1979 Regular Well Visit/Exam 18-64 1979 Zoster Vaccine (1 of 2) 2011 Hemoglobin A1C 05/05/2018 11/03/2017 eGFR 11/04/2018 11/04/2017, 040 12/2017, 11/02/2017, Additional history exists Lipid Panel 01/26/2022 01/26/2021, 030 08/2020, 11/04/2017 Pneumococcal vaccine <65 (3 of 3 - PCV20 or PCV21) 04/10/2022 04/10/2017, 04/30/2010, 10/22/2009 Influenza Vaccine (#1) 2025 , 04/24/2020, 05/22/2019, Additional history exists DTaP/Tdap/Td Vaccine (3 - Td or Tdap) 01/01/2028 12/31/2017, 10/22/2009 Colon Cancer Screening-Colonoscopy 08/19/2031 08/19/2021 Colon Cancer Screening-CT Colonography Discontinued 08/19/2021 Colon Cancer Screening-DNA Stool Discontinued 08/19/19 Colon Cancer Screening-FIT Discontinued 08/19/2021 Colon Cancer Screening-Sigmoidoscopy Discontinued 08/19/2021 Procedures Procedure Name Priority Date/Time Associated Diagnosis Comments COLONOSCOPY 08/19/2021 9:39 AM DERRICK WORKER LIPID PANEL STAT 11/04/2017 7:00 PM CDT EGFR Routine 11/04/2017 5:16 AM CDT HEMOGLOBIN A1C Routine 11/03/2017 8:06 AM CDT from Last 3 Months or Most Recently Relevant to Health Maintenance Results * COLONOSCOPY (08/19/2021 9:39 AM DERRICK WORKER) Anatomical Region Laterality Modality Other Narrative Procedure Note Clinton Ryan MD - 08/19/2021 9:39 AM CST [facility] Patient Name: Desi Reyez Procedure Date: 08/19/2021 9:39 AM Date of : 1960 Admit Type: Outpatient Age: 61 Gender: Female Attending MD: Clinton Ryan M.D. Room: [facility] ENDOSCOPY ROOM 2 Note Status: Finalized Patient Profile: Refer to note in patient chart for documentation of history and physical. Procedure: Colonoscopy Indications: High risk colon cancer surveillance: Personalhistory of colonic polyps, Last colonoscopy: 2014 Referring MD: Shady Wang M.D. Providers: Clinton Ryan M.D. Impression: - Hemorrhoids found on perianal exam. - Diverticulosis in the sigmoid colon, in the descending colon and in the transverse colon. - The examination was otherwise normal. - No specimens collected. Recommendation: - Discharge patient to home. - Resume previous diet. - Continue present medications. - Repeat colonoscopy in 5 years for surveillance. - Return to primary care physician as previously scheduled. Medicines: Propofol per Anesthesia Complications: No immediate complications. Estimated Blood Loss: Estimated blood loss: none. Procedure: Pre-Anesthesia Assessment: - This assessment was completed [Time ofAssessment] prior to the administration of sedation. The benefits, risks and alternatives of theprocedure and sedation were discussed and informed consentwas obtained. All questions were answered. Please referto the signed informed consent document in the medical record. The scope was passed under direct vision.The Colonoscope [id number] was introducedthrough the anus and advanced to the the cecum, identifiedby appendiceal orifice and ileocecal valve. The bowel preparation used was Miralax via single dose instruction. The bowel preparation used wasbisacodyl tablets via single dose instruction. Thecolonoscopy was performed without difficulty. The patient tolerated the procedure well. The quality of thebowel preparation was good. Findings: Hemorrhoids were found on perianal exam. Multiple medium-mouthed diverticula were found in the sigmoid colon, descending colon and transverse colon. The exam was otherwise without abnormality. we were unable toidentify a rectovaginal fistula in direct or retroflexed view. Electronically signed by Clinton Ryan M.D. Clinton Ryan M.D. 08/19/2021 10:27:11 AM Number of Addenda: 0 Note Initiated On: 08/19/2021 9:39 AM Procedure Code(s): --- Professional --- G0105, Colorectal cancer screening; colonoscopy on individual at high risk Diagnosis Code(s): --- Professional --- K57.30, Diverticulosis of large intestine without perforation orabscess without bleeding Z86.010, Personal history of colonic polyps K64.9, Unspecified hemorrhoids CPT copyright 2019 [employer]. All rights reserved. The codes documented in this report are preliminary and upon senior underwriting assistant reviewmay be revised to meet current compliance requirements. Recognized by the [employer] [employer] for promoting quality in endoscopy us Clinton Ryan MD ENDOSCOPY PROCEDURES Final Re sult * Lipid panel (11/04/2017 7:00 PM CDT) Cholesterol 137 30 - 200 mg/dL [facility] Comment: Interpretive Data Desirable: <200 mg/dL Borderline high: 200-239 mg/dL High: > or = 240 mg/dL Literature Reference: National Cholesterol Education Program (NCEP) Expert Panel on Detection, Evaluation, and Treatment of High Blood Cholesterol in Adults (Adult Treatment Panel III). Circulation 2004; 110:227. Current interpretive data was last revised on 2015. Triglycerides 127 0 - 150 mg/dL [facility] Comment: Interpretive Data Desirable: < 150 mg/dL Borderline High: 150 - 199 mg/dL High: 200 - 499 mg/dL Very High: > or = 499 mg/dL Literature Reference: See Cholesterol Current interpretive data was last revised on 2015. HDL 43 >=40 mg/dL [facility] Comment: Interpretive Data Less than 40 mg/dL - low; A major risk factor for heart disease. Greater than or equal to 60 mg/dL - High; considered protective of heart disease. Literature Reference: See Cholesterol Current interpretive data was last revised on 2015. LDL, calculated 69 10 - 129 mg/dL [facility] Comment: Interpretive Data Optimal: < 100 mg/dL Near Optimal: 100 - 129 mg/dL Borderline High: 130 - 159 mg/dL High: 160 - 189 mg/dL Very high: > or = 190 mg/dL Literature Reference: See Cholesterol Current interpretive data was last revised on 2015. Non-HDL Cholesterol 94 mg/dL [facility] Comment: Interpretive Data When triglycerides are >200 mg/dL, non-HDL C is a secondary target of therapy, with a goal 30 mg/dL higher than the identified LDL-C goal. Reference: See Cholesterol Reference. Current interpretive data was last revised 2015. Blood specimen (specimen) 11/04/2017 7:00 PM CDT 11/04/2017 8:59 PM CDT Narrative [facility] - 11/05/2017 4:37 PM CDT us Polo Peace MD LAB BLOOD ORDERABLES Fi nal Result [facility] Department [place] [address] * eGFR (11/04/2017 5:16 AM CDT) eGFR >60 mL/min/1.7 3 m2 [facility]) Comment: Interpretive Data Reference Interval Normal >/= 90 mL/min/1.73m2 Mildly decreased* 60 - 89 mL/min/1.73m2 Mildly to moderately decreased 45 - 59 mL/min/1.73m2 Moderately to severely decreased 30 - 44 mL/min/1.73m2 Severely decreased 15 - 29 mL/min/1.73m2 Kidney Failure < 15 mL/min/1.73m2 *Relative to young adult level If -[place] multiply value by 1.16. Estimated glomerular filtration rate is determined by the CKD-EPI equation recommended by the National Kidney Foundation (KDIGO 2012 Clinical Practice Guideline for the Evaluation and Management of Chronic Kidney Disease. Kidney Intnl Suppl Jul 2012;3:1). The CKD-EPI equation should not be used for patients with unstable renal function and has not been validated in children and those over 70. Current interpretive data was last reviewed 2016. Blood specimen (specimen) 11/04/2017 5:16 AM CDT 11/04/2017 5:21 AM CDT Narrative [facility]) - 11/04/2017 6:31 AM CDT us Debora Barrett MD LAB BLOOD ORDERABLES Final Resul t [facility]) [facility] Department [place] [address] * (ABNORMAL) Hemoglobin A1c (11/03/2017 8:06 AM CDT) Hgb A1C 8.2(H) 4.0 - 5.6 % [facility]) Estimated Average Glucose 189 mg/dL [facility] ([facility]) Comment: The ADA recommends reporting an estimated Average Glucose (eAG) with all Hemoglobin A1c results using the equation derived from a study of 507 normal and diabetic adults. Minority populations were underrepresented and children were not included. (Diabetes Care 31:3367-8023, 2008). The eAG is not equivalent to a fasting glucose. Blood specimen (specimen) 11/03/2017 8:06 AM CDT 11/03/2017 10:12 AM CDT Narrative [facility] - 11/03/2017 10:31 AM CDT us Debora Barrett MD LAB BLOOD ORDERABLES Final Resul t [facility] ([facility]) [facility] Department [place] [address] from Last 3 Months or Most Recently Relevant to Health Maintenance Insurance [facility]ICE PLUS [facility] H[facility]/PPO Address: [address] [address] [place] [address] [facility] H[facility]/PPO Address: [address] [place] [phone] [facility] HMO/PPO Address: [address] [address] [id number] [place], [place] [address] [place] Advance Directives For more information, please contact: [phone] * Full Code (Latest Code Status on File) Date Activated Date Inactivated Comments 08/19/2021 9:22 AM 08/19/2021 3:16 PM * Full Code Date Activated Date Inactivated Comments 08/19/2021 9:21 AM 08/19/2021 9:21 AM * Full Code Date Activated Date Inactivated Comments 10/31/2017 3:06 PM 11/04/2017 6:19 PM Care Teams Veneer Splicer Relationship Specialty Start Date End Date Shady Wang MD [address] [place] [address] PCP - General 11/16/17
--- OUTSIDE RECORDS SUMMARY | 2025-04-04 16:30 | XMS_ITS | Patient Health Record ---
Author Organization [facility] Address [address] [facility] [address] [place] [address] Care Team Providers Care Blood Bank Worker Name Role Phone Chaim Davis Unavailable [phone] Reason For Referral No Information Medications Medication SIG (Take, Route, Frequency, Duration) Notes Start Date End Date Status Levemir 100 UNIT/ML Solution Subcutaneous 08/07/2018 Active Lisinopril 10 MG Tablet Oral 08/07/2018 Active NovoLOG FlexPen ReliOn 100 UNIT/ML Solution Pen-injector Subcutaneous *Reorder from [email or web address] for eRx and Interaction Alerts* 08/07/2018 Active Atorvastatin Calcium 40 MG Tablet Oral 08/07/2018 Active Social History Social History Additional Details Category Social Info Options Details Migrated Social History Migrated Social History Alcohol Intake: None 06/28/2018,Tobacco Years: Never smoker 06/28/2018 Plan Of Treatment No Information Insurance Providers Payer Name Payer Address Payer Phone Subscriber Number Group Number Insured Name Patient Relationship to Insured Coverage Start Date Coverage End Date [facility] P[facility] [address] [place] [address] [id number] BACILIO MEJIA Self - patient is the insured
--- OUTSIDE RECORDS SUMMARY | 2025-04-04 16:30 | XMS_ITS | Encounter Summary ---
Author Organization [facility] Address [address] [facility] [place] [address] Phone Care Team Providers Care Clinical Education Consultant Name Role Phone Robert Yepez Samantha DPM Unavailable [phone] Shady Wang MD Primary Care Provider John Burns MD Unavailable [phone] Svetlana Roe MD Unavailable Reena Song APRN, CNP Unavailable Zan Wiley MD Primary Care Provider [phone] Jerrell Rosenthal MD Unavailable [phone] Encounter Details Date Type Department Care Team (Late st Contact Info) Description 09/09/2020 Transcribe [facility] 1 [place] [id number] John Burns MD [address] [place] [address], [address] [place] [address] Pre-op testing (Primary Dx) Social History Tobacco Use Types Packs/Day Years Used Date Smoking Tobacco: Never Smokeless Tobacco: Never Alcohol Use Standard Drinks/Week Comments Not Currently 0 (1 standard drink = 0.6 oz pur e alcohol) Sexually Active Control Partners Comments Yes Female Comments No Sex and Gender Information Value Date Recorded Sex Assigned at Not on file Legal Sex Female 9:28 PM CDT Gender Identity Not on file Sexual Orientation Not on file COVID-19 Exposure Response Date Recorded In the last month, have you been in contact with someone who was confirmed or suspected to have Coronavirus / COVID-19? No / Unsure 09/09/2020 3:30 PM CARTRIDGE MAKER documented as of this encounter Plan of Treatment Upcoming Encounters Date Type Department Care Team (Latest Contact Info) Description 04/09/2025 8:45 AM CDT [facility] 1 [place] [address] Chetan Timmons, MARINE MACHINIST #1 [place] [address] Discharge Disposition: Discharged to home or Selfcare 04/14/2025 9:45 AM CDT Office Visit [facility] - [facility] [place] [phone] Svetlana Roe MD #[address] [phone] 04/23/2025 5:30 PM CDT [facility]ment [facility] [address] [place] [phone] Zan Wiley MD [address] [place] [address] Discharge Disposition: Discharged to home or Selfcare 04/24/2025 10:00 AM CDT Outpatient [facility] 1 [place] [phone] Chetan Timmons, MARINE MACHINIST [address] [place] [address] Discharge Disposition: Discharged to home or Selfcare 08/18/2025 9:00 AM CARTRIDGE MAKER Office Visit [facility] - Pulmonology & Sleep Medicine - [place] [address] [place] [address] Reena Song, STOREPERSON, FISH CLEANER MACHINE TENDER [address] [place] [address] 09/08/2025 9:40 AM CARTRIDGE MAKER Office Visit [facility] - Primary Care - [place] [address] [place] [address] Zan Wiley MD [address] [place] [address] documented as of this encounter Results * SARS-COV-2 BY MOLECULAR (09/25/2020 3:32 PM CARTRIDGE MAKER) [facility] Signature SARSCOV2 NOT DETECTED (Referen ce Range for this test is Not Detected ) [facility] THERMOFISHER FAST DX 09/26/2020 10:32 AM CARTRIDGE MAKER [facility] Comment:This test was perfor med by a PCR method. Other NASOPHARYNGEAL STRUCTURE / Unknown Non-Phlebotomy Collection / Unknown 09/25/2020 3:32 PM CARTRIDGE MAKER 09/25/2020 4:43 PM CARTRIDGE MAKER Narrative [facility] - 09/26/2020 10:32 AM CARTRIDGE MAKER Authorized Fact Sheets about this test for providers and patients are available at: https://www.fda.gov/medical-devices/qtmzvpxfj-sjwpquuary-fmawrbb-devices/emergen -us e-authorizations us John Burns MD MICROBIOLOGY - GENERAL ORDERABLES Final Result [facility] [address] [facility] [place] [address], [place] documented in this encounter Visit Diagnoses Diagnosis Pre-op testing- Primary Preoperative examination, unspecified documented in this encounter Additional Health Concerns Infection Onset Date Last Indicated Resolved Time COVID - 19 Confirmed 04/06/2023 04/06/2023 023 12:16 AM CDT Assessment Noted Time PHQ-9 Depression Total Score: 0 10/23/19 16 3:53 PM CDT documented as of this encounter Care Teams Clinical Education Consultant Relationship Specialty Start Date End Date Shady Wang MD [address] [place] [address] PCP - General Internal Medicine 06/15/17 10/16/24 Zan Wiley MD #[address] [address] PCP - General Internal Medicine 10/17/24 Robert Yepez DPM Podiatry 11/23/15 John Burns MD [address] [place] [address] Consulting Physician Orthopaedic Sports Medicine 08/31/20 Svetlana Roe MD #[address] [phone] Consulting Physician Endocrinology 05/12/22 Reena Song APRN, FISH CLEANER MACHINE TENDER #[address] [address] Nurse Practitioner Advanced Practice Nurse 05/09/23 Jerrell Rosenthal MD #[address] [address] Consulting Physician General Surgery 11/13/24 documented as of this encounter
--- OUTSIDE RECORDS SUMMARY | 2025-04-04 16:30 | XMS_ITS | Encounter Summary ---
Author Organization [facility] Address [address] [place] [facility] [place] [address] Phone Care Team Providers Care Fisheries Officer Name Role Phone Robert Yepez Samantha DPLalit Unavailable [phone] John Burns MD Unavailable [phone] Svetlana Roe MD Unavailable Reena Song APRN, INFANTRY SENIOR SERGEANT Unavailable [phone] Zan Wiley MD Primary Care Provider [phone] Jerrell Rosenthal MD Unavailable [phone] Reason for Visit * Reason Onset Date Comments Advice Only 04/04/2025 Medication Management 04/04/2025 Encounter Details Date Type Department Care Team (Late st Contact Info) Description 04/04/2025 Nurse Triage [facility] [address] [place] [address] Zan Wiley MD [address] [place] [address] Advice Only; Medication Management Social History Tobacco Use Types Packs/Day Years Used Date Smoking Tobacco: Never Passive Smoke Exposure: Never Smokeless Tobacco: Never Alcohol Use Standard Drinks/Week Comments Yes 0 (1 standard drink = 0.6 oz pure alcohol) Occasionally has a glas of wine, maybe one glass of wine/month [facility] Utilities Answer Date Recorded In the past 12 months has e electric, gas, oil, or water company threatened to shut off services in your [...] week 10/17/2024 How often do you attend chur ch or gnosticism services? More than 4 times per year 10/17/2024 Do you belong to any clubs o r organizations such as buddhism groups, unions, fraternal or athletic groups, or [...] Total Score - Questions 1-9 0 09/29 [facility] of Occupat ional Health - Occupational Stress [...] or rent on time? Patient declined 10/18/19 25 Number of Times Moved in the Last [...] encounter Miscellaneous Notes * Telephone Encounter - Neelam Toledo RN - 04/04/2025 3:50 PM CDT Situation: high blood pressure Background: Patient contacting PCP office. Assessment: States she took her anxiety pill and Lisinopril. Her current BP is going up. Current BP is 159/87. ASSESSMENT: Symptom Description / Location: Denies chest pain, headache, difficulty breathing, blurring vision, double vision, A little dizziness and ears are burning Patient would like to be seen in office for blood pressure check Treatment / Response: none Caller denies pain. RECOMMENDATION: Caller agreeable to highest disposition listed: See in Office or Video Visit Today. Caller requesting appointment. Care advice provided per triage guideline. Caller verbalized understanding. Due to office unavailability within disposition, advised for patient to be seen at prompt care or urgent care. Caller agreeable to prompt care/urgent care. Discussed utilizing [email or web address] to: find [facility] or [facility] and schedule appointment with [facility] - Reason for Disposition: Patient wants to be seen . Protocols Used: Blood Pressure - High-A-OH See care advice and disposition for Guideline. First positive answer recorded, all responses to prior questions were negative. If symptoms increase, change or if new symptoms develop, call your health care provider or call back. Recommendations were based on caller information and is not a diagnosis. Verified and reviewed all triage information with caller. * Telephone Encounter - Zan Wiley MD - 04/04/2025 9:46 AM CDT Hydroxyzine for anxiety and zolpidem for sleep Rx sent. If symptoms get worse she should go to the ER. * Addendum Note - Zan Wiley MD - 04/04/2025 9:46 AM CDTAddended by: ZAN WILEY on: 04/04/2025 09:46 AM Modules accepted: Orders * Telephone Encounter - Neelam Toledo RN - 04/04/2025 9:21 AM CDT Situation: medication management Background: Patient contacting PCP office. Assessment: Patient calling stating her has been in the hospital and yesterday. Asking if she can get medication to help her sleep and calm nerves. States since not getting sleep her blood sugarhas been crazy. Denies triage at this time. States she doesn't want an anti-depressant medication, just something to help sleep and calm nerves. Recommendation: Encounter routed to provider to notify. Discussed utilizing Med fusion[employer] to: discuss if they would prefer a Med fusion[employer] message or phone call response. Response is preferred via MyChart or Phone Call. Hydroxyzine for anxiety and zolpidem for sleep Rx sent. * Telephone Encounter - Dakota Rivera - 04/04/2025 9:21 AM CDT Symptom: Depression Outcome: Schedule an urgent appointment within same day Reason: Started within the past 3 days The caller accepted this outcome. Caller Denied: * Attempted suicide today (injured self or took pills) * Making threats of suicide today * Acting confused documented in this encounter Plan of Treatment Upcoming Encounters Date Type Department Care Team (Latest Contact Info) Description 04/09/2025 8:45 AM CDT [facility] [address] [place] [address] Chetan Timmons, COLLECTION TELLER [address] [place] [address] Discharge Disposition: Discharged to home or Selfcare 04/14/2025 9:45 AM CDT Office Visit [facility] - Endocrinology [facility] [address] [place] [address] Svetlana Roe MD #[address] [address] 04/23/2025 5:30 PM CDT [facility] [address] [place] [address] Zan Wiley MD [address] [place] [address] Discharge Disposition: Discharged to home or Selfcare 04/24/2025 10:00 AM CDT Outpatient Clinic Visit [facility] [address] [place] [address] Chetan Timmons, COLLECTION TELLER [address] [place] [address] Discharge Disposition: Discharged to home or Selfcare 08/18/2025 9:00 AM ILLUSTRATOR SET Office Visit [facility] Pulmonology & Sleep Medicine [facility] [address] [place] [address] Reena Song APRN, INFANTRY SENIOR SERGEANT #[address] [address] 09/08/2025 9:40 AM ILLUSTRATOR SET Office Visit [facility] - Primary Care - [place] [address] [place] [address] Zan Wiley MD [address] [place] [address] documented as of this encounter Goals Goal Patient Goal Type Associated Problems Recent Progress Patient-Stated? Author [facility] On track(2024 10:13 AM CDT) Yes Millie Grace LCSW Note: I want to be able to heal from the feeling of being double crossed by family and others. Goal Reviewed with: patient today Readiness to change: Ready to change Department associated with goal: [facility] Steps to achieve goal: [...] Ready to change Department associated with goal: [facility] Steps to achieve goal: [...] track(2024 10:13 AM CDT) Yes Chetan Timmons, COLLECTION TELLER Note: I need to be able to cope better with my spouse's decline from dementia, plus bipolar disorder, and advance planning for the future, including monetary. documented as of this encounter Visit Diagnoses Diagnosis Psychophysiological insomnia- Primary Persistent disorder of initiating or maintaining sleep documented in this encounter Additional Health Concerns Assessment Noted Time PHQ-9 Depression Total Score: 0 10/18/19 7:59 AM CDT documented as of this encounter Care Teams Fisheries Officer Relationship Specialty Start Date End Date Zan Wiley MD #2 [facility] [address] [place] [address] PCP - General Internal Medicine 10/17/24 Robert Yepez DPM Podiatry 11/23/15 John Burns MD Consulting Physician Orthopaedic Sports Medicine 08/31/20 Svetlana Roe MD #2 [facility] [address] [place] [address] Consulting Physician Endocrinology 05/12/22 Reena Song APRN, INFANTRY SENIOR SERGEANT [address] [facility] [address] [place] [address] Nurse Practitioner Advanced Practice Nurse 05/09/23 Jerrell Rosenthal MD [address] [facility] [address] [place] [address] Consulting Physician General Surgery 11/13/24 documented as of this encounter
--- OUTSIDE RECORDS SUMMARY | 2025-04-04 16:30 | XMS_ITS | Encounter Summary ---
Author Organization [facility] Address [address] [facility] [place] [address] Phone Care Team Providers Care Wide Piece Goods Inspector Name Role Phone MarleniRobert DPM Unavailable [phone] Shady Wang MD Primary Care Provider [phone] John Burns MD Unavailable Svetlana Roe MD Unavailable Reena Song APRN, CNP Unavailable Zan Wiley MD Primary Care Provider [phone] Jerrell Rosenthal MD Unavailable [phone] Encounter Details Date Type Department Care Team (Late st Contact Info) Description 09/10/2020 [facility]cribe [facility] [address] [place] [address] Francisco Jackson MD [address] [place] [address] Pre-op testing (Primary Dx) Social History Tobacco [...] COVID-19? No / Unsure 09/09/2020 3:30 PM MINE CAR MECHANIC documented as of this encounter Plan of Treatment Upcoming Encounters Date Type Department Care Team (Latest Contact Info) Description 04/09/2025 8:45 AM CDT [facility] [address] [place] [address] Chetan Timmons, AUTOMOTIVE SERVICE PORTER [address] [place] [address] Discharge Disposition: Discharged to home or Selfcare 04/14/2025 9:45 AM CDT Office Visit [facility] - Endocrinology [facility] #2 [place] [address] Svetlana Roe MD #[address] [address] 04/23/2025 5:30 PM CDT [facility]ment [facility] [address] [place] [phone] Zan Wiley MD [address] [place] [address] Discharge Disposition: Discharged to home or Selfcare 04/24/2025 10:00 AM CDT [facility]patient [facility] [address] [place] [phone] Chetan Timmons, AUTOMOTIVE SERVICE PORTER [address] [place] [address] Discharge Disposition: Discharged to home or Selfcare 08/18/2025 9:00 AM MINE CAR MECHANIC [facility] - Pulmonology & Sleep Medicine - [place] [address] [place] [address] Reena Song, INTERMODAL DISPATCHER, HYDRAMATIC SPECIALIST #[address] [address] 09/08/2025 9:40 AM MINE CAR MECHANIC [facility] - [place] [address] [place] [address] Zan Wiley MD [address] [place] [address] documented as of this encounter Results * (ABNORMAL) BASIC METABOLIC PANEL W/ CALCIUM TOTAL (09/25/2020 3:38 PM MINE CAR MECHANIC) Pathologist [facility] SODIUM 137 136 - 144 mmol/L 09/25/2020 5:00 PM [facility] POTASSIUM 4.2 3.5 - 5.1 mmol/L 09/25/2020 5:00 PM [facility] CHLORIDE 100 100 - 110 mmol/L 09/25/2020 5:00 PM [facility] CO2, VENOUS 28 22 - 32 mmol/L 09/25/2020 5:00 PM [facility] ANION GAP 13.2 8.0 - 20.0 mmol/L 09/25/2020 5:00 PM [facility] GLUCOSE 144(H) 70 - 99 mg/dL 09/25/2020 5:00 PM [facility] BUN 12 6 - 20 mg/dL 09/25/2020 5:00 PM [facility] CREATININE, BLOOD 0.75 0.60 - 1.10 mg/dL 09/25/2020 5:00 PM [facility] BUN/CREATININE RATIO 16 12 - 20 ratio 09/25/2020 5:00 PM MINE CAR MECHANIC [facility] CALCIUM 10.9(H) 8.9 - 10.3 mg/dL 09/25/2020 5:00 PM MINE CAR MECHANIC [facility] GFR, EST. NONAFRICAN >60 >=60 09/25/2020 5:00 PM MINE CAR MECHANIC [facility] GFR, EST. >60 >=60 09/25/2020 5:00 PM MINE CAR MECHANIC [facility] Comment: Creatinine Clearance is the preferred criteria for selecting drug dose adjustments in renally impaired patients. The GFR is provided as additional pertinent clinical information. GFR is reported in mL/min/1.73 sq m. IS THE PATIENT REQUIRED TO BE FASTING? No 09/25/2020 5:00 PM MINE CAR MECHANIC [facility] Blood Venipuncture / Unknown 09/25/2020 3:38 PM MINE CAR MECHANIC 09/25/2020 4:43 PM MINE CAR MECHANIC Francisco Jackson MD CHEMISTRY ORDERABLES Final Re sult [facility] #[address] [place] [address] * HEMOGLOBIN & HEMATOCRIT (H&H) (09/25/2020 3:38 PM MINE CAR MECHANIC) HEMOGLOBIN (HGB) 14.5 12.0 - 15.8 g/dL 09/25/2020 4:47 PM MINE CAR MECHANIC [facility] HEMATOCRIT (HCT) 44.5 36.0 - 47.0 % 09/25/2020 4:47 PM MINE CAR MECHANIC [facility] Blood Venipuncture / Unknown 09/25/2020 3:38 PM MINE CAR MECHANIC 09/25/2020 4:43 PM MINE CAR MECHANIC Francisco Jackson MD HEMATOLOGY ORDERABLES Final R esult [facility] #[address] [place] [address] documented in this encounter Visit Diagnoses Diagnosis Pre-op testing- Primary Preoperative examination, unspecified documented in this encounter Additional Health Concerns Infection Onset Date Last Indicated Resolved Time COVID - 19 Confirmed 04/06/2023 04/06/2023 023 12:16 AM CDT Assessment Noted Time PHQ-9 Depression Total Score: 0 10/23/19 16 3:53 PM CDT documented as of this encounter Care Teams Wide Piece Goods Inspector Relationship Specialty Start Date End Date Shady Wang MD [address] [place] [address] PCP - General Internal Medicine 06/15/17 10/16/24 Zan Wiley MD #[address] [address] PCP - General Internal Medicine 10/17/24 Robert Yepez DPM Podiatry 11/23/15 John Burns MD [address] [place] [address] Consulting Physician Orthopaedic Sports Medicine 08/31/20 Svetlana Roe MD #[address] [address] Consulting Physician Endocrinology 05/12/22 Reena Song APRN, HYDRAMATIC SPECIALIST #[address] [address] Nurse Practitioner Advanced Practice Nurse 05/09/23 Jerrell Rosenthal MD #[address] [address] Consulting Physician General Surgery 11/13/24 documented as of this encounter
[2025-04-04 16:33] VITALS: BP 149/66; PULSE 71; RESP 18; TEMP 36.1; O2SAT 98
--- NOTE | 2025-04-04 16:37 | ED.GENADULT ---
HPI - General Adult General Chief complaint: Unspecified Stated complaint: Blood Pressure Problem Time Seen by Provider: 04/04/25 16:37 Source: patient Mode of arrival: ambulatory Limitations: no limitations History of Present Illness HPI narrative: 64 yo F presents with concerns that blood pressure is high. hx of HTN. has been on same dose of lisinopril for 15 yrs. Pt's yesterday. Has been anxious. ears felt hot so was checking BP multiple throughout the day. took hydroxyzine and anxiety now better. No CP or SOB. all systems reviewed and negative except as noted above. Related Data Home Medications ?Medication ?Instructions ?Recorded ?Confirmed ?Last Taken ?Type atorvastatin 40 mg tablet 40 mg PO DAILY 11/19/21 11/19/21 Unknown History insulin detemir U-100 100 unit/mL 26 unit subcut BID 11/19/21 11/19/21 Unknown History subcutaneous solution (Levemir U-100 Insulin) insulin lispro 100 unit/mL 1 sliding scale dose subcut 11/19/21 11/19/21 Unknown History subcutaneous pen USEASDIRECTD lisinopril 10 mg tablet 10 mg PO DAILY 11/19/21 11/19/21 Unknown History omeprazole 40 mg capsule,delayed 40 mg PO DAILY 11/19/21 11/19/21 Unknown History release Allergies Allergy/AdvReac Type Severity Reaction Status Date / Time acetaminophen (From Percocet) Allergy Hallucinati Verified 04/04/25 16:41 ng oxycodone (From Percocet) Allergy Hallucinati Verified 04/04/25 16:41 ng sertraline (From Zoloft) Allergy Itching Verified 04/04/25 16:41 antidepressants AdvReac Unknown Uncoded 11/19/21 12:29 PMFSH Comments At time of signature, agree with nursing past medical, surgical, social and family history. There is no relevant family history pertinent to the presenting complaint. Exam Narrative: GENERAL: This is a well-nourished, well-developed patient, in no apparent distress. HEAD: normocephalic, atraumatic. EYES: PERRL. Sclera clear/white. Vision is grossly intact. Extraocular motions intact EARS: External ears normal, auditory canals clear and without drainage, TMs normal without perforation. Hearing grossly intact. NOSE: External nose normal with no obvious nasal discharge, nares without redness, no rhinorrhea. THROAT: Mucous membranes moist, posterior pharynx clear. NECK: Neck supple, non-tender without lymphadenopathy, masses or thyromegaly. CARDIOVASCULAR: Regular rate and rhythm without murmurs, gallops, or rubs. RESPIRATORY: Clear to auscultation. Breath sounds equal bilaterally. No wheezes, rales, or rhonchi. SKIN: warm, Dry, intact with no suspicious lesions or rash, good texture and turgor. NEURO: awake, alert, and oriented to person, place and time. There were no obvious focal neurologic abnormalities. EXTREMITIES: No joint tenderness, effusion, or edema noted. Course Course Level of Care: Express Care Visit Vital Signs Vital signs: Vital Signs Temperature 36.1 C L 04/04/25 16:33 Pulse Rate 04/04/25 16:33 Respiratory Rate 04/04/25 16:33 Blood Pressure 149/66 H 04/04/25 16:33 Pulse Oximetry 98 04/04/25 16:33 Oxygen Delivery Room Air 04/04/25 16:33 Temperature 36.1 C L 04/04/25 16:33 Pulse Rate 04/04/25 16:33 Respiratory Rate 04/04/25 16:33 Blood Pressure 149/66 H 04/04/25 16:33 Pulse Oximetry 98 04/04/25 16:33 Oxygen Delivery Room Air 04/04/25 16:33 reviewed Medical Decision Making MDM Narrative Medical decision making narrative: BP manually 122/72. Pt is well appearing. No neuro deficits. Will continue to take medications as prescribed. will see PCP as needed. Vital Signs Vital Signs: Vital Signs Temperature 36.1 C L 04/04/25 16:33 Pulse Rate 04/04/25 16:33 Respiratory Rate 04/04/25 16:33 Blood Pressure 149/66 H 04/04/25 16:33 Pulse Oximetry 98 04/04/25 16:33 Oxygen Delivery Room Air 04/04/25 16:33 Temperature 36.1 C L 04/04/25 16:33 Pulse Rate 04/04/25 16:33 Respiratory Rate 04/04/25 16:33 Blood Pressure 149/66 H 04/04/25 16:33 Pulse Oximetry 98 04/04/25 16:33 Oxygen Delivery Room Air 04/04/25 16:33 Discharge Plan Discharge Clinical Impression: Blood pressure check Patient Disposition: Home Condition: Stable Instructions: Hypertension (ED) Additional Instructions: Your blood pressure was 149/66 when you were triaged and then 122/72 in exam room. Continue taking medications as prescribed. See your doctor if you continue to get high blood pressure readings at home. If you have chest pain, shortnesss of breath, facial droop, change in speech or weakness to an extremity go to the ER. Patient Language: Czech Prescriptions: No Action atorvastatin 40 mg tablet 40 mg PO DAILY omeprazole 40 mg capsule,delayed release(DR/EC) 40 mg PO DAILY lisinopril 10 mg tablet 10 mg PO DAILY Levemir U-100 Insulin 100 unit/mL Solution 26 unit SUBCUT BID Rx Instructions: 26 units am and pm insulin lispro [Humalog Pen] 100 unit/mL Insulin Pen 1 sliding scale dose SUBCUT USEASDIRECTD Follow-up/Referrals: Saurabh,Zan Buckner MD [Primary Care Provider, Unknown] Time of Disposition: 16:46
== END 2025-04-04 16:51 | disposition home or self-care (01) ==
PROVIDERS: Emergency Provider Nurse Practitioner Family; PCP Internal Medicine
DX: I10 Essential (primary) hypertension (principal); Z79.899 Other long term (current) drug therapy
CPT/HCPCS: 99211; G0463

== ENCOUNTER 2025-06-17 10:03 | Emergency (ER) | payer BC, SELFPAY ==
--- NOTE | ~2025-06-17 | XR_ITS ---
EXAMINATION: XR chest 2V, 06/17/2025 10:48 EXERCISER HORSE HISTORY: shortness of breath today. HX of asthma COMPARISON: No comparisons available. Technique: 2 views obtained. Findings: The lungs are clear, no effusion. No pneumothorax. Heart is normal size. Mediastinal and hilar contours are within normal limits. Bony thorax no acute abnormality. Impression: No acute cardiopulmonary abnormality. Reviewed, dictated and finalized at location P. CISER HORSE Impression: No acute cardiopulmonary abnormality.
[2025-06-17 10:14] VITALS: BP 144/65; PULSE 59; RESP 18; TEMP 36.3; O2SAT 98
--- NOTE | 2025-06-17 10:37 | ED.URI ---
HPI - URI/Sore Throat General Chief Complaint: Shortness of Breath/Dyspnea Stated Complaint: Tightness of Chest Time Seen by Provider: 06/17/25 10:25 Source: patient, RN notes reviewed and old records reviewed Mode of arrival: ambulatory Limitations: no limitations History of Present Illness HPI Narrative: 64 year old female who presents to express care with complaints of being short of breath with exertion since yesterday. Patient reports that she has used her inhalers as normal this morning and it doesn't seem to be helping much. Patient reports that she has sinus congestion and drainage and has been feeling fatigued. Patient reports that she just saw her measurer last Monday and does have history of asthma.Patient reports that neighbors were burning leaves yesterday. Patient reports no dyspnea at rest and denies any chest pain or palpitations. MD elicited complaint: other (shortness of breath and fatigue with nasal congestion) Onset (ago): day(s) (since yesterday) Severity: mild Description of mucous: clear Able to tolerate fluids by mouth: Yes Treatments prior to arrival: other (used her inhaelrs) Related Data Home Medications ?Medication ?Instructions ?Recorded ?Confirmed ?Last Taken ?Type atorvastatin 40 mg tablet 40 mg PO DAILY 11/19/21 11/19/21 Unknown History insulin detemir U-100 100 unit/mL 26 unit subcut BID 11/19/21 11/19/21 Unknown History subcutaneous solution (Levemir U-100 Insulin) omeprazole 40 mg capsule,delayed 40 mg PO DAILY 11/19/21 11/19/21 Unknown History release albuterol sulfate 90 mcg/actuation inhalation 06/17/25 Unknown History aerosol inhaler blood-glucose sensor (Dexcom G7 06/17/25 Unknown History Sensor device) fluticasone 250 mcg-salmeterol 50 inhalation 06/17/25 Unknown History mcg/dose blistr powdr for inhalation insulin degludec 100 unit/mL (3 unit subcut 06/17/25 Unknown History mL) subcutaneous pen (Tresiba FlexTouch U-100 insulin) ipratropium bromide 21 mcg (0.03 intranasal 06/17/25 Unknown History %) nasal spray latanoprost 0.005 % eye drops drp 06/17/25 Unknown History lisinopril 5 mg tablet mg 06/17/25 Unknown History Allergies Allergy/AdvReac Type Severity Reaction Status Date / Time acetaminophen (From Percocet) Allergy Hallucinati Verified 06/17/25 10:06 ng oxycodone (From Percocet) Allergy Hallucinati Verified 06/17/25 10:06 ng sertraline (From Zoloft) Allergy Itching Verified 06/17/25 10:06 antidepressants AdvReac Unknown Uncoded 11/19/21 12:29 Review of Systems Review of Systems: CONSTITUTIONAL: Denies malaise, chills, sweats, or fever.reports fatigue EYES: Denies visual changes, redness, or discharge. ENT: Reports rhinorrhea, congestion, no sinus pain, no otalgia and no sore throat. CARDIOVASCULAR: Denies chest pain, palpitations, or edema. RESPIRATORY: Reports some cough.? Reports dyspnea with exertion GASTROINTESTINAL: Denies abdominal pain, nausea, vomiting, diarrhea SKIN: Denies rash or itching. MUSCULOSKELETAL: Denies myalgia. NEUROLOGIC: Denies headache. All systems reviewed & are unremarkable except as noted in HPI and below PMFSH Past Medical History Medical History (Updated 06/18/25 @ 09:25 by Cecilia Parks APRN) Sleep apnea wears CPAP Hypertension Diabetes Elevated cholesterol GERD (gastroesophageal reflux disease) Asthma Surgical History Surgical History (Updated 06/17/25 @ 11:05 by Cecilia Parks APRN) History of bunionectomy H/O: hysterectomy History of tonsillectomy Social History Social History (Updated 06/18/25 @ 09:19 by Cecilia Parks APRN) Smoking status: Never smoker Alcohol intake: current Alcohol use details: rare Substance use type: does not use Living arrangements: with family Gender identity (if verbalized by the patient): Female Comments At time of signature, agree with nursing past medical, surgical, social and family history. There is no relevant family history pertinent to the presenting complaint Exam Narrative: GENERAL: Well-appearing, well-nourished, and in no acute distress. HEAD: Normocephalic EYES: PERRLA, conjunctivae clear ENT: Nares clear, turbinates edematous and erythematous, clear discharge. Mucous membranes moist. TM pearly hall with dull light reflex bilaterally; no tragal tenderness. Oropharynx erythematous without lesions. Tonsils not present and throat without exudate, no drooling, no hoarseness, no trismus, uvula midline. NECK: Supple. No lymphadenopathy CHEST: Decreased with some faint wheezes, breath sounds equal. + wheezing,no rhonchi, rales, or stridor. No respiratory distress, speaks in full sentences.dyspnea with exertion, no acute cough noted, no tachypnea HEART: Regular rate and rhythm. No murmur heard. SKIN: Warm, dry, no rash. NEURO: Alert and oriented x3. PSYCH: Normal mood and affect Course Course Emergency Course: Patient is aware of diagnosis, understands and agrees to treatment plan.? Anticipatory guidance given.? Patient agrees to follow-up as directed and is aware of reasons to seek care at the emergency department. Portions of this record may have been created with voice recognition software Level of Care: Express Care Visit Vital Signs Vital signs: Vital Signs Temperature 36.3 C L 06/17/25 10:14 Pulse Rate 59 L 06/17/25 10:14 Respiratory Rate 18 06/17/25 10:14 Blood Pressure 144/65 H 06/17/25 10:14 Pulse Oximetry 98 06/17/25 10:14 Oxygen Delivery Room Air 06/17/25 10:14 Temperature 36.3 C L 06/17/25 10:14 Pulse Rate 59 L 06/17/25 10:14 Respiratory Rate 18 06/17/25 10:14 Blood Pressure 144/65 H 06/17/25 10:14 Pulse Oximetry 98 06/17/25 10:14 Oxygen Delivery Room Air 06/17/25 10:14 Reviewed MDM - URI/Sore Throat MDM Narrative Medical decision making narrative: Differential diagnosis considered: [place] virus, strep pharyngitis, allergic rhinitis, upper respiratory tract infection, sinusitis, rhinosinusitis, nasopharyngitis. viral pharyngitis, otitis media, otitis externa, pneumonia, bronchitis, viral cough syndrome, viral syndrome, and influenza.? Exam findings show no acute concerns or changes; patient is non-toxic appearing and is in no distress.? Patient is appropriate for outpatient treatment and follow-up. Differential Diagnosis Differential diagnosis: Likely upper respiratory infection, viral infection, influenza and other (COVID exacerbation of asthma) Medical Records Attestation: I reviewed the patient's medical records. Lab Data Attestation: I reviewed the patient's lab results. Lab results narrative: COVID antigen negative, Influenza A& B negative Labs: Lab Results 06/17/25 Range/Units 10:58 POC Influenza A Ag Negative (Negative) POC Influenza B Ag Negative (Negative) POC SARS CoV-2 Ag Negative (Negative) reviewed Imaging Data Attestation: I personally reviewed and interpreted this imaging study as follows: My impression: no acute cardiopulmonary abnormality Radiologist's impression: [facility] [address] [place] [address] XRay Report Signed Patient: Desi Reyez : 1960 MR#: [id number] Age: 64 Acct:[id number] Loc: [facility] ADM Date: 06/17/[address]: Ordering Physician: Cecilia Parks APRN Date of Service: 06/17/25 Procedure(s): XR chest 2V Accession Number(s): [id number] cc: SAURABH,GILDARDO Buckner M.D.; Cecilia Parks APRN~ EXAMINATION: XR chest 2V, 06/17/2025 10:48 SALES OPERATIONS MANAGER HISTORY: shortness of breath today. HX of asthma COMPARISON: No comparisons available. Technique: 2 views obtained. Findings: The lungs are clear, no effusion. No pneumothorax. Heart is normal size. Mediastinal and hilar contours are within normal limits. Bony thorax no acute abnormality. Impression: No acute cardiopulmonary abnormality. Reviewed, dictated and finalized at location P. S OPERATIONS MANAGER Please be advised this is a medical document. It is intended for [id number] communication. It is written in medical language and may contain unfamiliar abbreviations or verbiage. Medical documents are intended to carry relevant information, facts as evident, and the clinical opinion of the practitioner at the time of the encounter. This report may have been done utilizing a voice recognition system. Attempts have been made to correct errors. However, there may be uncorrected grammatical, spelling, and recognition errors present. The file time of this note does not necessarily represent the time of service. Dictated By: Brian Kong MD 06/17/25 1100 Signed By: <Electronically signed by Brian Kong MD in OV> Critical Care Time Critical Care Time Critical Care Time: No Discharge Plan Discharge Clinical Impression: Upper respiratory infection Qualifiers: URI type: unspecified URI Qualified Code(s): J06.9 - Acute upper respiratory infection, unspecified Patient Disposition: Home Condition: Stable Instructions: Antibiotic Form Additional Instructions: Increase fluids especially juices and water [id number] cough and cold medicine of your choice for your symptoms recommend Delsym or Robitussin cough syrup Continue your inhaler/nebulizer as directed Zyrtec Claritin or Tara daily include Coricidin brand decongestant heat to the face 20-30 minutes 4-6 times a day for pain Salt water gargles, throat lozenges or throat sprays as desired If your symptoms persist, change or worsen significantly before you can contact your personal physician then please, without delay, go to the emergency department for further evaluation. Follow-up with PCP in 7-10 days or sooner if needed Follow up with PCP soon in regards to your blood pressure which is elevated above threshold for referral. Blood pressure above 120/80 may indicate pre-hypertension. 144/65 Patient refused offer of prednisone since is diabetic Patient Language: Mozambican Prescriptions: No Action atorvastatin 40 mg tablet 40 mg PO DAILY omeprazole 40 mg capsule,delayed release(DR/EC) 40 mg PO DAILY Levemir U-100 Insulin 100 unit/mL Solution 26 unit SUBCUT BID Rx Instructions: 26 units am and pm latanoprost 0.005 % drops fluticasone propion-salmeterol 250-50 mcg/dose blister with device INHALATION lisinopril 5 mg tablet ipratropium bromide 21 mcg (0.03 %) spray,non-aerosol INTRANASAL (DME) Dexcom G7 Sensor Device MISCELLANEOUS insulin degludec [Tresiba FlexTouch U-100] 100 unit/mL (3 mL) insulin pen SUBCUT albuterol sulfate 90 mcg/actuation HFA aerosol inhaler INHALATION Follow-up/Referrals: Saurabh,Gildardo Buckner MD [Primary Care Provider, Unknown] Time of Disposition: 11:13 Quality [place] Coma Scale Eyes: Open Verbal: Oriented and Alert Motor: Follows Commands [place] Coma Total Score: 15
[2025-06-17 11:01] LABS: EDCOVIDSCREEN Negative (Negative); EDINFLUASCREEN Negative (Negative); EDINFLUBSCREEN Negative (Negative)
== END 2025-06-17 11:19 | disposition home or self-care (01) ==
PROVIDERS: Emergency Provider Registered Nurse; PCP Internal Medicine
DX: J06.9 Acute upper respiratory infection, unspecified (principal); Z20.822 Contact with and (suspected) exposure to COVID-19; I10 Essential (primary) hypertension; E11.9 Type 2 diabetes mellitus without complications; Z79.4 Long term (current) use of insulin; E78.00 Pure hypercholesterolemia, unspecified; K21.9 Gastro-esophageal reflux disease without esophagitis; J45.909 Unspecified asthma, uncomplicated; G47.30 Sleep apnea, unspecified
CPT/HCPCS: 71046; 87426; 87804; 99213; G0463